=== PATIENT | female | born 1985 | race Caucasian/White ===

== ENCOUNTER 2017-04-10 09:18 | Emergency (ER) | payer SELFPAY ==
[~2017-04-10] VITALS: Ht 167.6 cm; Wt 126.8 kg
[~2017-04-10 09:18] MED LIST: CEPH500C2 PO; PRVHFAIN INH
[2017-04-10 09:25] VITALS: Ht 167.6 cm; Wt 126.8 kg
[2017-04-10 10:12] LABS: URINE APPEARANCE CLEAR (CLEAR); URINE BILIRUBIN NEG (NEG); URINE COLOR YELLOW; URINE EPITHELIAL CELL AUTO 20-30 /lpf (0-5); URINE NITRITE NEG (NEG); URINE SPECIFIC GRAVITY 1.016 (1.000-1.030); UROBILINOGEN NEG (NEG); ZZUR CULT IF INDIC CLEAN CATCH NO
[2017-04-10 10:16] LABS: MANUAL MICROSCOPIC REQUIRED? NO; REVIEW REQ? YES
[2017-04-10 10:42] LABS: BASO % 0.4 %; BASO ABS # 0.03 K/uL (0-0.2); COMPLETE YES; EOS % 1.6 %; HEMATOCRIT 40.7 % (37-47); IG% 0.1 %; LYMPH % 29.4 %; LYMPH ABS # 2.05 K/uL (1.2-3.4); MEAN CELL VOLUME 82.9 fL (80-100); MEAN CORPUSCULAR HEMOGLOBIN 27.7 pg (25-34); MEAN CORPUSCULAR HGB CONC 33.4 g/dl (32-36); MEAN PLATELET VOLUME 10.2 fL (7.4-10.4); MONO % 9.5 %; PLATELET COUNT 217 K/uL (130-400); RED BLOOD COUNT 4.91 M/uL (4.2-5.4); WHITE BLOOD COUNT 6.97 K/uL (4.8-10.8)
--- NOTE | 2017-04-10 10:42 | DIAGNOSTIC IMAGING REPORT ---
CHEST ONE VIEW PORTABLE HISTORY: ED eval cough COMPARISON: Chest 04/29/2016. FINDINGS: A few small linear densities within the left lung base. This may represent atelectasis or scarring. No new focal lung consolidations to suggest pneumonia. No evidence for pulmonary edema. There are low lung volumes. Cardiac silhouette is top normal in size. IMPRESSION: A few small linear densities at the left lung base which favor atelectasis or scarring. A pneumonia could also have a similar appearance but is considered less likely. Electronically signed by: Britton Mackey M.D. 04/10/2017 10:41 AM Dictated Date/Time: 04/10/2017 10:40 AM
[2017-04-10] MEDS ORDERED: ACETAMINOPHEN 500 MG TAB PO STA (10:46)
[2017-04-10] MEDS ORDERED: TRAMADOL HCL 50 MG TAB PO STA (10:46)
[2017-04-10] MEDS ORDERED: SODIUM CHLORIDE 0.9% 1000ML 1,000 ML IV STA (10:46)
[2017-04-10] MEDS ORDERED: COUGH DROP (SUGAR FREE) LOZ 24 LOZ/1 BOX PO STA (10:46)
[2017-04-10 11:01] LABS: BUN/CREATININE RATIO 14.9 (10-20); CALCIUM 8.8 mg/dl (8.5-10.1); CREATININE 0.69 mg/dl (0.60-1.20); POTASSIUM 3.9 mmol/L (3.5-5.1)
[2017-04-10 11:03] LABS: ALB/GLOB RATIO 0.9 (0.9-2)
[2017-04-10] MEDS ORDERED: AZITHROMYCIN 250 MG TAB PO ONE (11:15)
--- NOTE | 2017-04-10 11:48 | EMERGENCY ROOM VISIT NOTE ---
History Report prepared by Nathen: Kizzy Helms Under the Supervision of: Dr. Aubrey Leblanc M.D. First contact with patient: 10:15 Chief Complaint: ILLNESS Stated Complaint: SORETHROAT, CHEST PAIN WHEN COUGHING History of Present Illness The patient is a 31 year old white female with a past medical history of tonsillectomy who presents to the ED with a cc of persistent flu symptoms beginning 2 days ago. Positive cough productive of yellow/clear sputum, chest pain with coughing, congestion, clear/slightly yellow rhinorrhea, nausea. Negative leg pain/swelling, vomiting, ear pain, urinary symptoms. She denies any recent travel or history of blood clots. She does smoke. 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 She denies any sick contacts at home. Source of History: patient Onset: 2 days ago Position: other (global) Quality: other (flu symptoms) Timing: other (persistent) Associated Symptoms: + cough, + chest pain, + nausea, No vomiting, No urinary symptoms Note: Pt reports rhinorrhea, congestion. Pt denies ear pain. Review of Systems See HPI for pertinent positives and negatives. A total of ten systems were reviewed and were otherwise negative. 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 (23) Right calf pain (24) Right knee injury (25) Right lower quadrant abdominal abscess (26) Vertigo (27) Work related injury Surgical Problems: (1) History of - tubal ligation (2) Tonsillectomy Family History Cancer Diabetes mellitus Hypertension Social History Smoking Status: Current Every Day Smoker Alcohol Use: none Drug Use: none Marital Status: Housing Status: lives with family Occupation Status: employed Current/Historical Medications Scheduled Azithromycin (Zithromax), 250 MG PO DAILY Allergies Coded Allergies: Metaproterenol (Verified Allergy, Mild, UNKNOWN, 05/21/16) Ibuprofen (Verified Adverse Reaction, Intermediate, STOMACH ULCERS, ) Physical Exam Vital Signs Date Time Temp Pulse Resp B/P (MAP) Pulse Ox O2 Delivery O2 Flow Rate FiO2 04/10/17 12:59 69 18 127/88 100 04/10/17 11:59 36.6 65 18 125/71 98 Room Air 04/10/17 09:25 37.5 127 20 153/71 99 Room Air Physical Exam GENERAL: Awake, alert, well-appearing, NAD HENT: Normocephalic, atraumatic. Mild drainage to right naris. Posterior pharynx clear, no swelling or exudate. EYES: Normal conjunctiva. Sclera non-icteric. NECK: Supple. No nuchal rigidity. FROM. RESPIRATORY: CTAB, no rhonchi, wheezing, crackles CARDIAC: RRR, no MRG ABDOMEN: Soft, NTND, BS+ MSK: No chest wall TTP, no LE edema NEURO: GCS 15, CN 2-12 intact, moves all 4s on command SKIN: No rash or jaundice noted. Medical Decision & Procedures ER Provider Diagnostic Interpretation: Radiology results as stated below per my review and radiologist interpretation: CHEST ONE VIEW PORTABLE HISTORY: ED eval cough COMPARISON: Chest 04/29/2016. FINDINGS: A few small linear densities within the left lung base. This may represent atelectasis or scarring. No new focal lung consolidations to suggest pneumonia. No evidence for pulmonary edema. There are low lung volumes. Cardiac silhouette is top normal in size. IMPRESSION: A few small linear densities at the left lung base which favor atelectasis or scarring. A pneumonia could also have a similar appearance but is considered less likely. Electronically signed by: Britton Mackey M.D. 04/10/2017 10:41 AM Dictated Date/Time: 04/10/2017 10:40 AM Laboratory Results 04/10/17 10:26 Red Blood Count 4.91, Mean Corpuscular Volume 82.9, Mean Corpuscular Hemoglobin 27.7, Mean Corpuscular Hemoglobin Concent 33.4, Mean Platelet Volume 10.2, Neutrophils (%) (Auto) 59.0, Lymphocytes (%) (Auto) 29.4, Monocytes (%) (Auto) 9.5, Eosinophils (%) (Auto) 1.6, Basophils (%) (Auto) 0.4, Neutrophils # (Auto) 4.11, Lymphocytes # (Auto) 2.05, Monocytes # (Auto) 0.66, Eosinophils # (Auto) 0.11, Basophils # (Auto) 0.03 04/10/17 10:26 Test 04/10/17 09:45 04/10/17 10:02 04/10/17 10:26 Urine Color YELLOW Urine Appearance CLEAR (CLEAR) Urine pH 6.0 (4.5-7.5) Urine Specific [place] 1.016 (1.000-1.030) Urine Protein NEG (NEG) Urine Glucose (UA) NEG (NEG) Urine Ketones NEG (NEG) Urine Occult Blood NEG (NEG) Urine Nitrite NEG (NEG) Urine Bilirubin NEG (NEG) Urine Urobilinogen NEG (NEG) Urine Leukocyte Esterase NEG (NEG) Urine WBC (Auto) 1-5 /hpf (0-5) Urine RBC (Auto) 0-4 /hpf (0-4) Urine Hyaline Casts (Auto) 1-5 /lpf (0-5) Urine Epithelial Cells (Auto) 20-30 /lpf (0-5) Urine Bacteria (Auto) NEG (NEG) Urine Test NEG (NEG) Influenza Type A Antigen Neg for Influ A (NEG) Influenza Type B Antigen Neg for Influ B (NEG) White Blood Count 6.97 K/uL (4.8-10.8) Red Blood Count 4.91 M/uL (4.2-5.4) Hemoglobin 13.6 g/dL (12.0-16.0) Hematocrit 40.7 % (37-47) Mean Corpuscular Volume 82.9 fL (80-100) Mean Corpuscular Hemoglobin 27.7 pg (25-34) Mean Corpuscular Hemoglobin Concent 33.4 g/dl (32-36) Platelet Count 217 K/uL (130-400) Mean Platelet Volume 10.2 fL (7.4-10.4) Neutrophils (%) (Auto) 59.0 % Lymphocytes (%) (Auto) 29.4 % Monocytes (%) (Auto) 9.5 % Eosinophils (%) (Auto) 1.6 % Basophils (%) (Auto) 0.4 % Neutrophils # (Auto) 4.11 K/uL (1.4-6.5) Lymphocytes # (Auto) 2.05 K/uL (1.2-3.4) Monocytes # (Auto) 0.66 K/uL (0.11-0.59) Eosinophils # (Auto) 0.11 K/uL (0-0.5) Basophils # (Auto) 0.03 K/uL (0-0.2) RDW Standard Deviation 46.1 fL (36.4-46.3) RDW Coefficient of Variation 15.2 % (11.5-14.5) Immature Granulocyte % (Auto) 0.1 % Immature Granulocyte # (Auto) 0.01 K/uL (0.00-0.02) Anion Gap 4.0 mmol/L (3-11) Est Creatinine Clear Calc Drug Dose 159.4 ml/min Estimated GFR () 133.5 Estimated GFR (Non- 115.2 BUN/Creatinine Ratio 14.9 (10-20) Calcium Level 8.8 mg/dl (8.5-10.1) Total Bilirubin 0.4 mg/dl (0.2-1) Aspartate Amino Transf (AST/SGOT) 9 U/L (15-37) Alanine Aminotransferase (ALT/SGPT) 19 U/L (12-78) Alkaline Phosphatase 64 U/L (45-117) Total Protein 7.2 gm/dl (6.4-8.2) Albumin 3.4 gm/dl (3.4-5.0) Globulin 3.8 gm/dl (2.5-4.0) Albumin/Globulin Ratio 0.9 (0.9-2) Laboratory results reviewed by me Medications Administered Medications (Trade) Dose Ordered Sig/Naomi Route Start Time Stop Time Status Last Admin Dose Admin Acetaminophen (Tylenol Tab) 1,000 mg NOW STAT PO 04/10/17 10:46 04/10/17 10:51 DC 04/10/17 11:01 1,000 MG Tramadol HCl (Ultram Tab) 50 mg NOW STAT PO 04/10/17 10:46 04/10/17 10:51 DC 04/10/17 11:01 50 MG Menthol (Nice Dang) 1 dang NOW STAT PO 04/10/17 10:46 04/10/17 10:51 DC 04/10/17 11:01 1 DANG Sodium Chloride 1,000 ml @ 999 mls/hr Q1H1M STAT IV 04/10/17 10:46 04/10/17 11:46 DC 04/10/17 11:00 999 MLS/HR Azithromycin (Zithromax Tab) 500 mg NOW ONCE PO 04/10/17 11:15 04/10/17 11:16 DC 04/10/17 11:57 500 MG ECG Indication: chest pain Rate (beats per minute): 72 Rhythm: normal sinus Findings: T-wave inversion (lead 3 and aVF, early repolarization lead 1 and aVL , no other STS changes or TWI), left axis deviation, other (normal intervals) Comparison ECG Date: no prior available ED Course 1040: The patient was evaluated in room B11B. A complete history and physical exam was performed. 1205: I reevaluated the patient. I discussed results and discharge instructions : She verbalized understanding and agreement. The patient is ready for discharge. Medical Decision Differential diagnosis: Etiologies such as cardiac ischemia, aortic dissection, pulmonary embolism, pneumonia, pneumothorax, musculoskeletal, infections, pericarditis, myocarditis , esophageal rupture, gastrointestinal, URI, sinusitis, rhinitis as well as others were entertained. The patient is a 31 year old white female with a past medical history of tonsillectomy who presents to the ED with a cc of persistent flu symptoms beginning 2 days ago. Patient was seen and evaluated at the bedside. Patient initial vital signs patient with tachycardia. Patient's story not consistent with ACS and does not have any other risk factors other than obesity and smoking. Patient's EKG was not normal and was told to follow-up with her PCP. Patient does not PE RC out however patient wells negative once tachycardia resolved and given likely infectious related symptoms. Less likely PE. Patient's tachycardia and pain discomfort resolved supportive care. Patient did have a chest x-ray that showed possible atelectasis versus early infection. Given patient's productive sputum and smoking history decision was made to treat. Patient's labwork fairly unremarkable. Patient will blood cell count of 7. Patient's BMP and LFTs within normal limits. Patient's UA and UPT negative. Patient also had flu negative. Patient was given smoking cessation counseling. Patient agreed with plan of care patient was safely discharged home. Medication Reconcilliation Current Medication List: was personally reviewed by me Blood Pressure Screening Patient's blood pressure: Normal blood pressure Blood pressure disposition: Did not require urgent referral Impression Primary Impression: Encounter for smoking cessation counseling Additional Impressions: Dehydration Viral illness PNA (pneumonia) Scribe Attestation The scribe's documentation has been prepared under my direction and personally reviewed by me in its entirety. I confirm that the note above accurately reflects all work, treatment, procedures, and medical decision making performed by me. Departure Information Dispostion Home / Self-Care Prescriptions Azithromycin (Zithromax) 250 Mg Tab 250 MG PO DAILY, #4 TAB Prov: Aubrey Leblanc M.D. 04/10/17 Referrals [facility] (PCP) Patient Instructions ED Pneumonia Adult, ED Smoking Cessation, How Do You Quit Smoking Without Getting Fat - [facility], [facility] Additional Instructions Please return to the emergency department if you have worsening or recurrent symptoms not amenable to at-home treatment. Please call for a follow-up appointment with her primary care physician. Please take your medications as prescribed. If you have other concerns and/or complaints please feel free to also call your primary care physician's office or return the ED for further evaluation, management, and treatment. You received narcotic or benzodiazepene medication while in the emergency room today. This is an addictive medication that may cause drowziness as well as constipation. Do not drive, operate heavy machinery, or drink alcohol under the influence of this medication. You may take 600 mg Ibuprofen every 6 hours as needed for pain with food for no more than 2 consecutive days. You may take tylenol 1000mg every 6 hours as needed for pain. You may take motrin and tylenol separately or at the same time. Take antibiotics as prescibed. Please consider smoking cessation. You may take probiotic and or yogurt with antibiotic to help replace good gut bacteria. You have been examined and treated today on an emergency basis only. This is not a substitute for, or an effort to provide, complete comprehensive medical care. It is impossible to recognize and treat all injuries or illnesses in a single emergency department visit. It is therefore important that you follow up closely with [facility]. Call as soon as possible for an appointment. Thank you for your time and consideration. I look forward to speaking with you again soon. Please don't hesitate to call us if you have any questions. Work Instructions Return To Work: 1 day Specific Date: 04/11/17 Problem Qualifiers Additional Impressions: PNA (pneumonia) Pneumonia type: due to unspecified organism Laterality: left Lung location : unspecified part of lung Qualified Codes: J18.9 - Pneumonia, unspecified organism
[2017-04-10 11:59] VITALS: TEMP 36.6
[2017-04-10] MEDS ORDERED: AZIT250T PO (12:23)
[2017-04-10 12:59] VITALS: BP 127/88; PULSE 69; O2SAT 100
== END 2017-04-10 13:00 | disposition home or self-care (01) ==
LOC: C.EDB 09:22
DX: J18.9 Pneumonia, unspecified organism (principal); E86.0 Dehydration; B34.9 Viral infection, unspecified; Z71.6 Tobacco abuse counseling; F17.210 Nicotine dependence, cigarettes, uncomplicated; H81.10 Benign paroxysmal vertigo, unspecified ear; K21.9 Gastro-esophageal reflux disease without esophagitis; E66.9 Obesity, unspecified; Z68.42 Body mass index [BMI] 45.0-49.9, adult; Z98.51 Tubal ligation status; Z80.9 Family history of malignant neoplasm, unspecified; Z83.3 Family history of diabetes mellitus; Z82.49 Family history of ischemic heart disease and other diseases of the circulatory system

== ENCOUNTER 2017-05-21 18:54 | Emergency (ER) | payer SELFPAY ==
[~2017-05-21] VITALS: Ht 167.6 cm; Wt 127.0 kg
[~2017-05-21 18:54] MED LIST changes: +AZIT250T PO; -CEPH500C2 PO; -PRVHFAIN INH
[2017-05-21 19:01] VITALS: Ht 167.6 cm; Wt 127.0 kg
--- NOTE | 2017-05-21 19:52 | DIAGNOSTIC IMAGING REPORT ---
RIGHT SHOULDER 3 VIEWS HISTORY: right shoulder pain COMPARISON: None. FINDINGS: There is no fracture or dislocation. Soft tissues are unremarkable. The right clavicle is intact. Mild AC joint arthrosis. Punctate calcified granuloma within the right upper lobe. IMPRESSION: No fracture or dislocation within the right shoulder Electronically signed by: Britton Mackey M.D. 05/21/2017 7:51 PM Dictated Date/Time: 05/21/2017 7:49 PM
--- NOTE | 2017-05-21 20:24 | EMERGENCY ROOM VISIT NOTE ---
History First contact with patient: 19:26 Chief Complaint: SHOULDER PAIN Stated Complaint: RT SHOULDER PAIN History of Present Illness The patient is a 31 year old female who presents to the Emergency Room with complaints of right shoulder pain. The patient reports that she reached up to put a pizza into the oven earlier in the day and developed pain in the right shoulder afterward. She states the pain was initially sharp, but has now become a dull, achy pain which she rates an 8/10. She does report some tingling in the right upper arm, but denies numbness or weakness. She denies any issues with the shoulder previously. She denies any chest pain or shortness of breath. She states her pain is worsened with movement of the shoulder or when trying to lift things. Review of Systems A complete 10 point review of systems was reviewed with the patient with pertinent positives and negatives as per history of present illness. All else were negative. 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 (23) Right calf pain (24) Right knee injury (25) Right lower quadrant abdominal abscess (26) Vertigo (27) Work related injury Surgical Problems: (1) History of - tubal ligation (2) Tonsillectomy Family History Cancer Diabetes mellitus Hypertension Social History Smoking Status: Current Every Day Smoker Alcohol Use: none Drug Use: none Marital Status: Housing Status: lives with family Occupation Status: employed Current/Historical Medications Scheduled Azithromycin (Zithromax), 250 MG PO DAILY Allergies Coded Allergies: Metaproterenol (Verified Allergy, Mild, UNKNOWN, 05/21/16) Ibuprofen (Verified Adverse Reaction, Intermediate, STOMACH ULCERS, ) Physical Exam Vital Signs Date Time Temp Pulse Resp B/P (MAP) Pulse Ox O2 Delivery O2 Flow Rate FiO2 05/21/17 20:38 36.7 70 18 119/76 96 05/21/17 20:29 70 18 119/76 96 Room Air 05/21/17 19:01 36.7 76 20 137/86 99 Room Air Physical Exam VITALS: Vitals are noted on the nurse's note and reviewed by myself. Vital signs stable. GENERAL: This is a 31-year-old female, in no acute distress, nondiaphoretic, well-developed well-nourished. SKIN: Capillary reflex less than 2 seconds. HEART: Regular rate and rhythm without murmurs gallops or rubs. LUNGS: Clear to auscultation bilaterally without wheezes, rales or rhonchi. MUSCULOSKELETAL: There is diffuse, mild tenderness to palpation of the right shoulder. Full range of motion. Patient does report subjective pain with range of motion. NEURO: Patient was alert and oriented to person place and time. Normal sensation to light and sharp touch. Medical Decision & Procedures ER Provider Diagnostic Interpretation: RIGHT SHOULDER 3 VIEWS HISTORY: right shoulder pain COMPARISON: None. FINDINGS: There is no fracture or dislocation. Soft tissues are unremarkable. The right clavicle is intact. Mild AC joint arthrosis. Punctate calcified granuloma within the right upper lobe. IMPRESSION: No fracture or dislocation within the right shoulder Medical Decision Differential diagnosis includes fracture, dislocation, sprain, rotator cuff injury, cervical radiculopathy, among others. The patient was evaluated as above. She presents with pain in the right shoulder after reaching overhead. An x-ray was obtained and reviewed by myself and radiology with no acute findings. Patient likely has a muscular strain and was advised to take anti-inflammatories at home. She was offered a sling but declined. She will follow-up with orthopedics as needed for persistent pain or difficulty moving the arm. She verbalized understanding of my assessment and treatment plan and was discharged home in good condition. Medication reconciliation: I attest that I have personally reviewed the patient 's current medication list. Blood pressure screening: Patient was found to have normal blood pressure on screening and does not require follow-up. Impression Primary Impression: Right shoulder pain Departure Information Dispostion Home / Self-Care Condition GOOD Referrals [facility] (PCP) Torsten Mac M.D. Patient Instructions My [facility] Additional Instructions You have been treated in the Emergency Department for Shoulder Pain. For pain control, you can use the following [id number]-[id number] medicines (if >12 yo): - Regular strength (325mg/tab) Tylenol (acetaminophen) 2 tabs every 4-6 hours as needed. Do not exceed 12 tablets in a 24 hour period. Avoid taking more than 4 grams (4000 mg) of Tylenol per day. This includes any other sources of acetaminophen you may take on a regular basis. - Regular strength (200 mg/tab) Advil (ibuprofen) 1-2 tabs every 4-6 hours as needed. Do not exceed a dose of 3200 mg per day. If this is a recent injury (<24 hrs), ice can be applied to the area of pain for the first 3 days to help decrease pain and inflammation. You have been provided the number for an Orthopaedic Surgeon. You should call this number as soon as possible to establish a follow-up visit from today's Emergency Department visit. Return to the Emergency Department if your current symptoms worsen despite treatment course outlined above, or if you develop any of the following symptoms : intractable pain despite aforementioned treatment course or new onset of numbness or tingling of the arm. Problem Qualifiers Primary Impression: Right shoulder pain Chronicity: acute Qualified Codes: M25.511 - Pain in right shoulder
[2017-05-21 20:38] VITALS: BP 119/76; PULSE 70; TEMP 36.7; O2SAT 96
== END 2017-05-21 20:39 | disposition home or self-care (01) ==
LOC: C.EDB 18:55 → C.EDD 20:39
DX: M25.512 Pain in left shoulder (principal); F17.210 Nicotine dependence, cigarettes, uncomplicated

== ENCOUNTER 2017-08-21 09:52 | Emergency (ER) | payer SELFPAY ==
[~2017-08-21] VITALS: Ht 170.2 cm; Wt 125.4 kg
[~2017-08-21 09:52] MED LIST changes: -AZIT250T PO; +IBUP-1105 PO; +VNTHFA/IN INH
[2017-08-21 10:03] VITALS: Ht 170.2 cm; Wt 125.4 kg
[2017-08-21] MEDS ORDERED: OSELTAMIVIR PHOSPHATE 75 MG CAP PO STA (10:56)
[2017-08-21] MEDS ORDERED: ALBUT/IPRATROP 3MG/0.5MG NEB 3 ML VIAL INH STA (10:56)
[2017-08-21] MEDS ORDERED: AZITHROMYCIN 250 MG TAB PO ONE (11:00)
[2017-08-21] MEDS ORDERED: SODIUM CHLORIDE 0.65% NA SOLN 45 ML (OCEAN) ONE (11:00)
--- NOTE | 2017-08-21 11:01 | EMERGENCY ROOM VISIT NOTE ---
History Report prepared by Nathen: Ranulfo Thorne Under the Supervision of: Dr. Mal Kaur M.D. First contact with patient: 10:42 Chief Complaint: FLU LIKE SX Stated Complaint: EAR CLOGGED, COUGH ,LOW GRADE FEVER History of Present Illness The patient is a 31 year old female who presents to the Emergency Room with complaints of persistent flu like symptoms for the past two weeks. She states that she has had some ear clogging and then draining, pink eye, head congestion , cough, and a low grade fever. The patient states that her last fever was 99.3 this morning, and she has not taken any Tylenol. She states that she has been using a nasal spray, though no other antihistamines. She denies any burning with urination, nausea, vomiting, and diarrhea. The patients last normal menstrual period was 2.5 weeks ago, and she states that it was only 2 days compared to her usual 5. She notes that she did not get a flu shot this year, and she states that her daughter is positive for flu. She states that she is a smoker, and she has not been using an inhaler. She notes that she has this inhaler for pneumonia a month ago, and she states that her cough came back a couple of days ago. Source of History: patient Onset: two weeks ago Position: other (global) Quality: other (flu like symptoms) Timing: other (persistent) Associated Symptoms: + fevers, + cough Note: Associated symptoms: Ear clogging and then draining, pink eye Review of Systems See HPI for pertinent positives and negatives. A total of ten systems were reviewed and were otherwise negative. 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 (23) Right calf pain (24) Right knee injury (25) Right lower quadrant abdominal abscess (26) Vertigo (27) Work related injury Surgical Problems: (1) History of - tubal ligation (2) Tonsillectomy Family History Cancer Diabetes mellitus Hypertension Social History Smoking Status: Current Every Day Smoker Alcohol Use: none Drug Use: none Marital Status: Housing Status: lives with family Occupation Status: employed Current/Historical Medications Scheduled Albuterol (Ventolin Hfa), 2 PUFFS INH QID Azithromycin (Zithromax), 250 MG PO DAILY Oseltamivir Phosphate (Tamiflu), 75 MG PO BID Scheduled PRN Ibuprofen Tab (Motrin), 800 MG PO Q8H PRN for Pain Allergies Coded Allergies: Metaproterenol (Verified Allergy, Mild, UNKNOWN, 08/21/17) Ibuprofen (Verified Adverse Reaction, Intermediate, STOMACH ULCERS, ) Physical Exam Vital Signs Date Time Temp Pulse Resp B/P (MAP) Pulse Ox O2 Delivery O2 Flow Rate FiO2 08/21/17 12:55 37.3 101 18 110/89 96 Room Air 08/21/17 11:54 37.4 104 16 121/70 97 Room Air 08/21/17 10:03 37.1 107 18 104/76 96 Room Air Physical Exam GENERAL: Awake, alert, fatigued-appearing, in no distress HENT: Normocephalic, atraumatic. Dry mucous membranes. Boggy nasal turbinates. Mild tenderness to the maxillary an frontal sinuses. TM with scant injection bilaterally. Mildly injected posterior oropharynx. No edema or exudate. EYES: Normal conjunctiva. Sclera non-icteric. NECK: Supple. No nuchal rigidity. FROM. No JVD. RESPIRATORY: Clear to auscultation. CARDIAC: Regular rate, normal rhythm. Extremities warm and well perfused. Pulses equal. ABDOMEN: Soft, non-distended. No tenderness to palpation. No rebound or guarding. No masses. RECTAL: Deferred. MUSCULOSKELETAL: Chest examination reveals no tenderness. The back is symmetrical on inspection without obvious abnormality. There is no CVA tenderness to palpation. No joint edema. LOWER EXTREMITIES: Calves are equal size bilaterally and non-tender. No edema. No discoloration. NEURO: Normal sensorium. No sensory or motor deficits noted. SKIN: No rash or jaundice noted. Medical Decision & Procedures ER Provider Diagnostic Interpretation: Radiology results as stated below per my review and radiologist interpretation: CHEST ONE VIEW PORTABLE CLINICAL HISTORY: cough dyspnea COMPARISON STUDY: 06/02/2017 FINDINGS: The bones soft tissues and hemidiaphragms are normal. The cardiomediastinal silhouette is normal. The lungs are clear. The pulmonary vasculature is normal. IMPRESSION: Negative chest. The above report was generated using voice recognition software. It may contain grammatical, syntax or spelling errors. Electronically signed by: Coleman Justin M.D. 08/21/2017 11:22 AM Dictated Date/Time: 08/21/2017 11:21 AM Laboratory Results Test 08/21/17 11:40 Urine Test NEG (NEG) Laboratory results reviewed by me Medications Administered Medications (Trade) Dose Ordered Sig/Naomi Route Start Time Stop Time Status Last Admin Dose Admin Oseltamivir Phosphate (Tamiflu Cap) 75 mg NOW STAT PO 08/21/17 10:56 08/21/17 11:00 DC 08/21/17 11:23 75 MG Albuterol/ Ipratropium (Duoneb) 3 ml NOW STAT INH 08/21/17 10:56 08/21/17 11:00 DC 08/21/17 11:23 3 ML Azithromycin (Zithromax Tab) 500 mg NOW ONCE PO 08/21/17 11:00 08/21/17 11:01 DC 08/21/17 11:23 500 MG Sodium Chloride (Mcpherson Nasal Anthony) 2 sprays NOW ONCE NA 08/21/17 11:00 08/21/17 11:01 DC 08/21/17 11:22 2 SPRAYS ED Course 1042: The patient was evaluated in room C2. A complete history and physical exam was performed. 1320: I reevaluated the patient. Discussed results and discharge instructions: she verbalized understanding and agreement. The patient is ready for discharge. Medical Decision I reviewed the patient's past medical history, medications, and the nursing notes as described above. The patient's presentation and history were concerning for viral syndrome, influenza, otitis media, bronchitis, and pharyngitis. The patient is 31 y/o woman, active smoker who presents to the emergency department with cough, congestion, ear fullness and body aches over the past several days in the setting of body aches over the past couple of weeks, in the setting of being treated for PNA 1 month ago per HPI. Of note, patient arrives to ED with her 6 y/o son who has similar sx in the setting of having another child at home who was recently diagnosed and treated for Flu. On arrival the patient is in NAD, AFVSS. Patient has clear URI sx with boggy nasal turbinates, mild maxillary and frontal sinus ttp, TMs with mild injection. Scant wheeze in the setting of the patient's chronic smoking. CXR negative. Given the patient's smoking history it is reasonable to treat for bronchitis with azithromycin as well as treat empirically for Flu with Tamiflu. Patient given neb with improvement in her symptoms. Plan for pcp f/u. Findings and plan for follow-up reviewed with patient. Patient agreeable and d/c'd per discharge instructions. Medication Reconcilliation Current Medication List: was personally reviewed by me Blood Pressure Screening Patient's blood pressure: Normal blood pressure Impression Primary Impression: Bronchitis Scribe Attestation The scribe's documentation has been prepared under my direction and personally reviewed by me in its entirety. I confirm that the note above accurately reflects all work, treatment, procedures, and medical decision making performed by me. Departure Information Dispostion Home / Self-Care Prescriptions Albuterol (Ventolin Hfa) 60 Puffs/5400 Mcg Aers 2 PUFFS INH QID for 5 Days, #1 INHALER Prov: Mal Kaur M.D. 08/21/17 Azithromycin (Zithromax) 250 Mg Tab 250 MG PO DAILY, #4 TAB Prov: Mal Kaur M.D. 08/21/17 Oseltamivir Phosphate (Tamiflu) 75 Mg Cap 75 MG PO BID, #10 CAP Prov: Mal Kaur M.D. 08/21/17 Ibuprofen Tab (MOTRIN) 800 Mg Tab 800 MG PO Q8H Y for Pain, #20 TAB Prov: Mal Kaur M.D. 08/21/17 Referrals [facility] (PCP) Forms HOME CARE DOCUMENTATION FORM, IMPORTANT VISIT INFORMATION Patient Instructions ED Bronchitis Asthmatic, ED Viral Syndrome, My [facility] Additional Instructions Please follow up with your primary care physician in the next 1-3 days for re- evaluation. You likely have a bronchitis that may have been exacerbated by a viral syndrome and possibly flu. Otherwise, your exam and chest xray did not show signs of an emergent condition at this time. Azithromycin and Tamiflu as directed. Use your albuterol inhaler 2 puffs every 4 hours for the next 48 hours and then as needed thereafter. Ensure hydration. Acetaminophen and Ibuprofen for pain and fevers as needed. Return to the emergency department for worsening symptoms as described in the accompanying instructions.
--- NOTE | 2017-08-21 11:24 | DIAGNOSTIC IMAGING REPORT ---
CHEST ONE VIEW PORTABLE CLINICAL HISTORY: cough dyspnea COMPARISON STUDY: 06/02/2017 FINDINGS: The bones soft tissues and hemidiaphragms are normal. The cardiomediastinal silhouette is normal. The lungs are clear. The pulmonary vasculature is normal. IMPRESSION: Negative chest. The above report was generated using voice recognition software. It may contain grammatical, syntax or spelling errors. Electronically signed by: Coleman Justin M.D. 08/21/2017 11:22 AM Dictated Date/Time: 08/21/2017 11:21 AM
[2017-08-21 12:55] VITALS: BP 110/89; PULSE 101; TEMP 37.3; O2SAT 96
[2017-08-21] MEDS ORDERED: IBUP-1451 PO ×2 (13:14→13:19)
[2017-08-21] MEDS ORDERED: OSEL75CA23 PO ×2 (13:14→13:19)
[2017-08-21] MEDS ORDERED: PRVHFAIN INH ×2 (13:15→13:19)
[2017-08-21] MEDS ORDERED: AZIT250T PO ×2 (13:15→13:19)
== END 2017-08-21 13:47 | disposition home or self-care (01) ==
LOC: C.EDB 09:53 → C.EDC 13:47
DX: J40 Bronchitis, not specified as acute or chronic (principal); F17.200 Nicotine dependence, unspecified, uncomplicated; Z83.3 Family history of diabetes mellitus; Z82.49 Family history of ischemic heart disease and other diseases of the circulatory system

== ENCOUNTER 2017-09-08 10:31 | Emergency (ER) | payer SELFPAY ==
[~2017-09-08] VITALS: Ht 167.6 cm; Wt 122.0 kg
[~2017-09-08 10:31] MED LIST changes: +AZIT250T PO; -IBUP-1105 PO; +IBUP-1451 PO; +OSEL75CA23 PO; +PRVHFAIN INH; -VNTHFA/IN INH
[2017-09-08 10:40] VITALS: BP 139/77; TEMP 36.7; Ht 167.6 cm; Wt 122.0 kg
[2017-09-08] MEDS ORDERED: VNTHFA/IN INH (10:51)
[2017-09-08] MEDS ORDERED: CEPH500C2 PO (11:41)
--- NOTE | 2017-09-08 11:42 | EMERGENCY ROOM VISIT NOTE ---
ED Visit Note First contact with patient: 10:58 CHIEF COMPLAINT: Right great toe infection 2 days HISTORY OF PRESENT ILLNESS: Patient is a 31-year-old white female who presents emergency department for evaluation of right great toe pain, redness and swelling. She began to note some soreness in the lateral nailfold a couple of days ago. It has progressively worsened. Last night, after taking a hot bath, and walking around her home, she got some pus like drainage from the nail fold. She did have some of her pain medication, which she took. She did soak the area in warm soapy water today. She denies any further drainage. She rates her discomfort a 7/10. She states that she trimmed her nails a couple of weeks ago, and was using a cuticle luciana to clean around the nail. She does have a history of subcutaneous abscesses, including in her axilla and in her groin. She denies a history of MRSA. REVIEW OF SYSTEMS: Review of systems as per HPI. All other systems reviewed were negative. At least 6 systems reviewed. PMH: Electronic medical records are reviewed and summarized as above/below. See Problem List. Her tetanus is up-to-date. SOCIAL HISTORY: Patient lives at home with her family. PHYSICAL EXAM: Vital Signs: Reviewed Nurse's notes. INTEGUMENTARY: Examination of the right great toe show some soft tissue swelling and erythema of the lateral nailfold. There is some granulation tissue noted at the corner of the nail. The area is moderately tender to palpation, range of motion full. There is no pus or effusion under the nailbed. No drainable paronychia. EMERGENCY DEPARTMENT COURSE: The patient is seen and evaluated as above. She presents with some pus like drainage from the lateral nail fold of her right great toe after trimming her nails several weeks ago. She appears to have had a perineal Which has drained spontaneously on its own. She does have some surrounding erythema, but no further drainable fluid collection at this time. Treatment options were discussed with the patient including performing a digital block, and exploring the area, versus a trial of local wound care measures and antibiotics. She prefers the latter. She was encouraged to continue warm soapy water soaks, and will be placed on Keflex. Her wound was cleansed here and she was placed in a postoperative shoe for support. Differential diagnoses included paronychia, felon, osteomyelitis, infectious tenosynovitis, among others. Problem List Medical Problems: (1) Abdominal pain Status: Resolved (2) Abscess Status: Resolved (3) Abscess packing removal Status: Resolved (4) Benign positional vertigo Status: Resolved (5) Calf pain Status: Resolved (6) Cellulitis Status: Resolved (7) Chest pain Status: Resolved (8) Chest pain Status: Resolved (9) Chest pain Status: Resolved (10) Cigarette smoker Status: Resolved (11) Esophagitis Status: Resolved (12) Fall Status: Resolved (13) Fall from slipping on slippery surface Status: Resolved (14) GERD (gastroesophageal reflux disease) Status: Chronic (15) Headache Status: Resolved (16) Knee pain Status: Resolved (17) Left leg cellulitis Status: Resolved (18) Lower abdominal pain Status: Resolved (19) Lumbar strain Status: Resolved (20) Normal Status: Resolved (21) Obesity Status: Chronic (22) Ovarian cyst Status: Resolved (23) Pelvic contusion Status: Resolved (24) Pneumonia Status: Resolved (25) Premature Rupture of Membranes Status: Resolved (26) Right calf pain Status: Resolved (27) Right knee injury Status: Resolved (28) Right lower quadrant abdominal abscess Status: Resolved (29) Right shoulder pain Status: Resolved (30) Vertigo Status: Resolved (31) Work related injury Status: Resolved Surgical Problems: (1) History of - tubal ligation Status: Resolved (2) Tonsillectomy Status: Resolved Current/Historical Medications Scheduled Cephalexin Monohydrate (Keflex), 500 MG PO QID Scheduled PRN Albuterol Hfa (Ventolin Hfa), 2 PUFFS INH QID PRN for SOB/Wheezing Ibuprofen Tab (Motrin), 800 MG PO Q8H PRN for Pain Allergies Coded Allergies: Metaproterenol (Verified Allergy, Mild, UNKNOWN, 09/08/17) Ibuprofen (Verified Adverse Reaction, Intermediate, STOMACH ULCERS, ) Vital Signs Date Time Temp Pulse Resp B/P (MAP) Pulse Ox O2 Delivery O2 Flow Rate FiO2 09/08/17 11:52 70 16 97 09/08/17 10:40 36.7 89 20 139/77 100 Medications Administered Medications (Trade) Dose Ordered Sig/Naomi Route Start Time Stop Time Status Last Admin Dose Admin Cephalexin Monohydrate (Keflex Cap) 500 mg NOW ONCE PO 09/08/17 11:45 09/08/17 11:46 DC 09/08/17 11:49 500 MG Acetaminophen/ Hydrocodone Bitart ([place] 5/325mg Home Pack) 1 homepack UD ONCE PO 09/08/17 11:45 09/08/17 11:46 DC 09/08/17 11:50 1 HOMEPACK Departure Information Impression Primary Impression: Ingrown toenail of right foot with infection Prescriptions Cephalexin Monohydrate (KEFLEX) 500 Mg Cap 500 MG PO QID for 7 Days, #28 CAP Prov: Barbara Cui PA 09/08/17 Referrals [facility] (PCP) Patient Instructions My [facility] Additional Instructions Cephalexin(Keflex) 500mg: Take one pill four times daily for 7 days for your skin infection. All antibiotics can cause diarrhea. If this occurs and you feel worse or it does not resolve in 1-2 days follow up with your doctor or return to the Emergency Department as this could be signs of serious underlying problems. Any medication can cause an allergic reaction, stop the pills immediately and return to the ER for rash, hives, breathing difficulties, or swelling. Ibuprofen(Motrin, Advil) may be used for fever or pain. Use 600mg every six hours as needed. Take with food. Avoid using more than 2400mg in a 24 hour period. Do not use 2400mg per day for more than three consecutive days without physician direction. Prolonged inappropriate use can lead to stomach upset or ulcers. (AND/OR) Acetaminophen(Tylenol) may be used for fever or pain. Use 1000mg every six hours as needed. Avoid using more than 3000mg in a 24 hour period. Warm soapy water soaks to the affected area 4 times daily for 15-20 minutes. Clean with hydrogen peroxide for 2-3 days, then may discontinue. Her with antibiotic ointment and a bandage until healed. Wear the postoperative shoe until you can wear a regular shoe comfortably. Rest and drink plenty of fluids. Continue current medications. Return to the ER for severe pain, persistent fevers, spreading redness, or any worsening of your condition. Follow up with your primary physician within 2-3 days for a recheck of the current condition.
[2017-09-08] MEDS ORDERED: CEPHALEXIN MONOHYDRATE 250 MG CAP PO ONE (11:45)
[2017-09-08] MEDS ORDERED: NORCO 5/325MG HOME PACK PO ONE (11:45)
[2017-09-08 11:52] VITALS: PULSE 70; O2SAT 97
== END 2017-09-08 11:53 | disposition home or self-care (01) ==
LOC: C.EDB 10:33 → C.EDC 11:53
DX: L60.0 Ingrowing nail (principal); Z87.891 Personal history of nicotine dependence; Z88.8 Allergy status to other drugs, medicaments and biological substances; Z88.6 Allergy status to analgesic agent

== ENCOUNTER 2017-11-07 19:30 | Emergency (ER) | payer OTHER ==
[~2017-11-07] VITALS: Ht 170.2 cm; Wt 125.0 kg
[~2017-11-07 19:30] MED LIST changes: -AZIT250T PO; -OSEL75CA23 PO; -PRVHFAIN INH; +VNTHFA/IN INH
[2017-11-07 19:34] VITALS: TEMP 36.7; Ht 170.2 cm; Wt 125.0 kg
--- NOTE | 2017-11-07 19:48 | EMERGENCY ROOM VISIT NOTE ---
History Report prepared by Nathen: Maria C White Under the Supervision of: Dr. Glenn Domingo M.D. First contact with patient: 19:39 Chief Complaint: KNEEPAIN Stated Complaint: RT KNEE PAIN-WC History of Present Illness The patient is a 31 year old female who presents to the Emergency Room with complaints of persistent right knee pain that started 7 hours ago. The patient rates her pain a 8/10 in severity. The patient states she was at work when she was carrying a plastic tub of water and slipped on the wet floor. She notes she landed directly on her right knee. She reports she did not hit her head. The patient states she had surgery on her right knee from a previous fall where she tore her meniscus. She notes she has back and abdominal pain. The patient denies chest pain or shortness of breath. Source of History: patient Onset: 7 hours ago Position: knee (right) Symptom Intensity: 8/10 Timing: other (persistent) Associated Symptoms: + abdominal pain, + back pain, No chest pain, No SOB Review of Systems See HPI for pertinent positives & negatives. A total of 10 systems reviewed and were otherwise negative. Past Medical & Surgical Medical Problems: (1) Abdominal pain (2) Abscess (3) Abscess packing removal (4) Benign positional vertigo (5) Calf pain (6) Cellulitis (7) Chest pain (8) Chest pain (9) Chest pain (10) Cigarette smoker (11) Esophagitis (12) Fall (13) Fall from slipping on slippery surface (14) GERD (gastroesophageal reflux disease) (15) Headache (16) Knee pain (17) Left leg cellulitis (18) Lower abdominal pain (19) Lumbar strain (20) Normal (21) Obesity (22) Ovarian cyst (23) Pelvic contusion (24) Pneumonia (25) Premature Rupture of Membranes (26) Right calf pain (27) Right knee injury (28) Right lower quadrant abdominal abscess (29) Right shoulder pain (30) Vertigo (31) Work related injury Surgical Problems: (1) History of - tubal ligation (2) Tonsillectomy Old medical records were reviewed. Nurse's notes were reviewed and I agree with. Family History Cancer Diabetes mellitus Hypertension Social History Smoking Status: Current Every Day Smoker Alcohol Use: none Drug Use: none Marital Status: Housing Status: lives with family Occupation Status: employed Current/Historical Medications Scheduled PRN Albuterol Hfa (Ventolin Hfa), 2 PUFFS INH QID PRN for SOB/Wheezing Ibuprofen Tab (Motrin), 800 MG PO Q8H PRN for Pain Allergies Coded Allergies: Metaproterenol (Verified Allergy, Mild, UNKNOWN, 09/08/17) Ibuprofen (Verified Adverse Reaction, Intermediate, STOMACH ULCERS, ) Physical Exam Vital Signs Date Time Temp Pulse Resp B/P (MAP) Pulse Ox O2 Delivery O2 Flow Rate FiO2 11/07/17 21:19 82 20 169/81 97 Room Air 11/07/17 19:34 36.7 93 18 121/72 98 Room Air Physical Exam General: Non-ill appearing young female in no acute distress. HEENT: Normal cephalic atraumatic. Pupils are equal round and reactive to light. Extraocular movements are intact. Oropharynx is pink with moist mucous membranes. No swelling of the mouth lips or tongue. Neck: Supple with a midline trachea. No meningeal signs or stiffness, no JVD or bruits. No Stridor. Chest: Clear to auscultation bilaterally. No wheezes or rhonchi. No increased work of breathing. Heart: regular rate and rhythm. Abdomen: Soft nontender, nondistended without rebound guarding or rigidity. Extremities: Right knee mildly tender but no swollen. Normal motor and sensation. Normal pulses. Spine/Back. Non tender to palpation. No CVA tenderness Skin: Good turgor without rashes. Neurologic exam: Cranial nerves two through 12 are intact. Motor and sensation are intact and symmetrical throughout. Medical Decision & Procedures ER Provider Diagnostic Interpretation: Radiology results as stated below per my review and radiologist interpretation: RIGHT KNEE 3 VIEWS HISTORY: Right knee pain. Fall. EVAL FOR PATELLA FX AND KNEE INJURY COMPARISON: None. FINDINGS: There is no fracture or dislocation. Mild tricompartmental osteoarthritis. No significant knee effusion. No radiopaque foreign bodies. IMPRESSION: No fractures. Electronically signed by: Britton Mackey M.D. 11/07/2017 8:35 PM Dictated Date/Time: 11/07/2017 8:34 PM Medications Administered Medications (Trade) Dose Ordered Sig/Naomi Route Start Time Stop Time Status Last Admin Dose Admin Acetaminophen (Tylenol Tab) 650 mg NOW STAT PO 11/07/17 20:25 11/07/17 20:26 DC 11/07/17 20:30 650 MG ED Course 1939: Past medical records reviewed. The patient was evaluated in room D3B, and a complete history and physical examination were performed. 2024: Tylenol Tab 650 mg PO. 2044: Upon reevaluation, the patient is resting comfortably. I discussed the results and treatment plan with her. She verbalized agreement of the treatment plan. The patient is ready for discharge. Medical Decision Differentials include, but are not limited to; contusion, ligamentous injury, fracture. This patient comes in as described above. She fell at work and injured her knee. She has full range of motion and no ligamentous instability. X-rays were obtained and show no fracture or dislocation. She was given Tylenol for pain. She has no other complaints. Shee will use an Monty wrap and ice and elevate and use Tylenol/acetaminophen for pain. She has a history of stomach ulcers so I told her to try to avoid NSAIDs. Do not take more than the over-the -counter recommended dosage of Tylenol and do not take with any other medications that contain Tylenol/acetaminophen. I recommend she follow-up with Dr. Mac her orthopedics either tomorrow or Saturday. She is getting be given a day off tomorrow from work. She was happy the plan and discharged to home. Medication Reconcilliation Current Medication List: was personally reviewed by me Impression Primary Impression: Knee contusion Scribe Attestation The scribe's documentation has been prepared under my direction and personally reviewed by me in its entirety. I confirm that the note above accurately reflects all work, treatment, procedures, and medical decision making performed by me. Departure Information Dispostion Home / Self-Care Referrals [facility] (PCP) Patient Instructions My [facility] Additional Instructions Rest. Ice Elevate Use Tylenol/acetaminophen a maximum of 650 mg every 6 hours. Do not take with any other medications that contain Tylenol/Acetaminophen Use Monty wrap Return if: Increasing pain, numbness weakness, worsening symptoms, any new problems or concerns. Follow-up with Dr. Mac's office tomorrow for recheck
[2017-11-07] MEDS ORDERED: ACETAMINOPHEN 325 MG TAB PO STA (20:25)
--- NOTE | 2017-11-07 20:37 | DIAGNOSTIC IMAGING REPORT ---
RIGHT KNEE 3 VIEWS HISTORY: Right knee pain. Fall. EVAL FOR PATELLA FX AND KNEE INJURY COMPARISON: None. FINDINGS: There is no fracture or dislocation. Mild tricompartmental osteoarthritis. No significant knee effusion. No radiopaque foreign bodies. IMPRESSION: No fractures. Electronically signed by: Britton Mackey M.D. 11/07/2017 8:35 PM Dictated Date/Time: 11/07/2017 8:34 PM
[2017-11-07 21:19] VITALS: BP 169/81; PULSE 82; O2SAT 97
== END 2017-11-07 21:20 | disposition home or self-care (01) ==
LOC: C.EDB 19:32 → C.EDD 21:20
DX: S80.01XA Contusion of right knee, initial encounter (principal); W01.198A Fall on same level from slipping, tripping and stumbling with subsequent striking against other object, initial encounter; Y99.0 Civilian activity done for income or pay; M54.9 Dorsalgia, unspecified; R10.9 Unspecified abdominal pain; F17.200 Nicotine dependence, unspecified, uncomplicated; Z98.890 Other specified postprocedural states; Z88.8 Allergy status to other drugs, medicaments and biological substances; Z88.6 Allergy status to analgesic agent; Z83.3 Family history of diabetes mellitus; Z82.49 Family history of ischemic heart disease and other diseases of the circulatory system

== ENCOUNTER 2020-05-24 06:43 | Observation (INO) ==
[2020-05-24] MEDS ORDERED: SULFAMETHOXAZOLE/TRIMETHOPRIM DS 800/160MG TAB PO ONE (07:15)
[2020-05-24] MEDS ORDERED: MoRPHine SULFATE 4 MG/ML 1 ML CARP\\VIAL IV STA (07:15)
[2020-05-24] MEDS ORDERED: KETOROLAC 30 MG/ML VIAL IV ONE (07:15)
[2020-05-24] MEDS ORDERED: ONDANSETRON INJ 2 MG/ML 2 ML VIAL IV STA (07:15)
[2020-05-24] MEDS ORDERED: cefTRIAXone SODIUM 2,000 MG/70 ML BAG IV STA (07:15)
--- NOTE | 2020-05-24 07:25 | Emergency Department Note ---
History of Present Illness General Chief complaint: Breast Pain/Problems Stated complaint: RIGHT BREAST HOT,HURTS Time Seen by Provider: 05/24/20 07:01 History of Present Illness Maximum Pain Intensity: 8 34-year-old female who presents to the emergency department with concern for a right breast abscess. The patient reports prior history of breast abscesses. She last required an I&D approximately 1.[address] Travis. The patient reports that Dr. Travis refused to perform any further procedures until she stopped smoking. The patient reports that she did stop smoking late last year, and continues to get infections. The patient reports that she has been tested negative in the past for MRSA. The patient started to notice some redness yesterday morning after showering. The pain was much worse last night and was unable to sleep because of the pain. She does report some mild drainage from the lateral aspect of the breast. She denies any nipple discharge. The patient denies any recent injury to the breast, and rates her discomfort an 8 out of 10. Home Medications Home Medications Medication Instructions Recorded Confirmed Type albuterol sulfate 2 puff INHALATION QID PRN 07/14/18 05/24/20 History metformin 500 mg PO HS 12/23/18 05/24/20 History sertraline 100 mg PO HS 12/23/18 05/24/20 History spironolactone 50 mg PO HS 12/23/18 05/24/20 History buspirone 0 mg PO BID 08/18/19 05/24/20 History Allergies Allergy/AdvReac Type Severity Reaction Status Date / Time metaproterenol Allergy Mild UNKNOWN Verified 05/24/20 07:46 ibuprofen AdvReac Intermediate STOMACH Verified 05/24/20 07:46 ULCERS Past Med/Surg History Medical History Benign positional vertigo GERD (gastroesophageal reflux disease) Ovarian cyst PNA (pneumonia) Surgical History History of knee surgery Tubal ligation status Social History Smoking Status: Former smoker Tobacco Type: Cigarettes Cigarettes Per Day: 20; Second Hand Exposure: No; Do You Dip or Chew Tobacco: No; Tobacco Cessation Education Requested by Patient: No Hx Alcohol Use: No Hx Substance Use: No Preferred Language: Citizen Of [place] Communication Ability: Effective Foster Care Case Manager Required: No Beliefs That Will Affect Care: None marital status: Current Living Situation: Spouse current occupational status: employed Other Information That Helps Us Care for You: No Feels Safe at Home: Yes Safety Concerns: Feels Safe At This Time Assistive Devices: Glasses Review of Systems 10 system review was performed and was negative except for pertinent positives and negatives as indicated in history of present illness Physical Exam Vital Signs Vital Signs - 24 hr 05/24/20 06:47 05/24/20 08:23 05/24/20 10:00 Temperature 36.9 C Temperature Source Oral Pulse Rate 85 Pulse Rate [Apical] Pulse Rate [Right Finger] 74 80 Pulse Rhythm [Apical] Pulse Rhythm [Right Finger] Regular Pulse Strength [Apical] Pulse Strength [Right Finger] Normal Respiratory Rate 20 20 18 Respiratory Effort / Characteristics Non-Labored Non-Labored Spontaneous Respiratory Depth Normal Normal Respiratory Pattern Regular Blood Pressure 130/78 Blood Pressure [Right Arm] 149/79 H 139/78 Blood Pressure Mean 95 Blood Pressure Mean [Right Arm] 102 98 Blood Pressure Position Sitting Blood Pressure Position [Right Arm] Lying Pulse Oximetry 98 94 97 Oxygen Delivery Method Room Air Room Air Room Air Oxygen Flow Rate Sepsis Recent Fever Within 48 Hours No Sepsis New/Unexplained Change in Mental Status N/A Sepsis Action Taken by Nursing No Action Required 05/24/20 12:00 05/24/20 14:05 05/24/20 14:53 Temperature 36.6 C 36.2 C L Temperature Source Oral Temporal Artery Scan Pulse Rate Pulse Rate [Apical] 77 Pulse Rate [Right Finger] 87 78 Pulse Rhythm [Apical] Regular Pulse Rhythm [Right Finger] Regular Pulse Strength [Apical] Normal Pulse Strength [Right Finger] Normal Respiratory Rate 18 18 18 Respiratory Effort / Characteristics Non-Labored Spontaneous Non-Labored Spontaneous Respiratory Depth Normal Normal Respiratory Pattern Regular Regular Blood Pressure Blood Pressure [Right Arm] 123/74 127/66 104/71 Blood Pressure Mean Blood Pressure Mean [Right Arm] 90 86 82 Blood Pressure Position Blood Pressure Position [Right Arm] Sitting Semi-fowlers Pulse Oximetry 97 98 96 Oxygen Delivery Method Room Air Room Air Oxymask Oxygen Flow Rate 2 Sepsis Recent Fever Within 48 Hours Sepsis New/Unexplained Change in Mental Status Sepsis Action Taken by Nursing 05/24/20 15:00 05/24/20 15:10 05/24/20 15:20 Temperature Temperature Source Pulse Rate Pulse Rate [Apical] 81 80 79 Pulse Rate [Right Finger] Pulse Rhythm [Apical] Regular Regular Regular Pulse Rhythm [Right Finger] Pulse Strength [Apical] Normal Normal Normal Pulse Strength [Right Finger] Respiratory Rate 15 15 18 Respiratory Effort / Characteristics Non-Labored Spontaneous Non-Labored Spontaneous Non-Labored Spontaneous Respiratory Depth Normal Normal Normal Respiratory Pattern Regular Regular Regular Blood Pressure Blood Pressure [Right Arm] 115/67 102/79 109/71 Blood Pressure Mean Blood Pressure Mean [Right Arm] 83 86 83 Blood Pressure Position Blood Pressure Position [Right Arm] Semi-fowlers Semi-fowlers Semi-fowlers Pulse Oximetry 94 94 92 Oxygen Delivery Method Oxymask Oxymask Room Air Oxygen Flow Rate 2 2 Sepsis Recent Fever Within 48 Hours Sepsis New/Unexplained Change in Mental Status Sepsis Action Taken by Nursing 05/24/20 15:30 05/24/20 15:40 Temperature Temperature Source Pulse Rate Pulse Rate [Apical] 78 77 Pulse Rate [Right Finger] Pulse Rhythm [Apical] Regular Regular Pulse Rhythm [Right Finger] Pulse Strength [Apical] Normal Normal Pulse Strength [Right Finger] Respiratory Rate 18 18 Respiratory Effort / Characteristics Non-Labored Spontaneous Non-Labored Spontaneous Respiratory Depth Normal Normal Respiratory Pattern Regular Regular Blood Pressure Blood Pressure [Right Arm] 115/73 103/69 Blood Pressure Mean Blood Pressure Mean [Right Arm] 87 80 Blood Pressure Position Blood Pressure Position [Right Arm] Semi-fowlers Semi-fowlers Pulse Oximetry 93 93 Oxygen Delivery Method Room Air Room Air Oxygen Flow Rate Sepsis Recent Fever Within 48 Hours Sepsis New/Unexplained Change in Mental Status Sepsis Action Taken by Nursing CONSTITUTIONAL: Healthy and well nourished. Patient appears in mild discomfort. HEENT: Normocephalic, atraumatic. No scleral icterus or conjunctival inject ion/pallor. NECK: Full active range of motion without discomfort. LYMPHATICS: No right axillary adenopathy appreciated. RESPIRATORY: Clear to auscultation bilaterally with no wheezing, crackles, r honchi or stridor. CARDIOVASCULAR: Regular rate and rhythm with no murmurs, rubs or gallops. MUSCULOSKELETAL: Full range of motion of the right shoulder without discomfort. INTEGUMENTARY/BREAST: With a female nurse supervisor boiler repair present, breast exam was performed. Patient has notable erythema over the anterior portion of the breast. It is notably tender to palpation with mild induration, mostly focused over the region medial to the areola. No nipple discharge or bleeding noted. No other rash or other significant dermatologic conditions noted of the exposed chest region. HEMATOLOGIC: No ecchymosis or petechiae. PSYCHIATRIC: Positive affect. NEUROLOGIC: No focal neurologic deficits noted. Course Course Patient history and physical exam were performed. Nurses notes were reviewed. Vital signs were reviewed and were normal. IV access was established, and labs were drawn. The patient was administered IV morphine, Toradol and Zofran for pain. She was also administered IV Rocephin and oral Bactrim DS. Review of labs shows a mild leukocytosis with left shift and no bandemia. CMP was otherwise unremarkable. Urinalysis was ordered, however the patient was unable to provide a urine sample. Ultrasound of the right breast does show evidence of a complex abscess at 8-9 o'clock. Given ultrasound findings, mild leukocytosis and notable erythema of the breast, I did recommend contacting general surgery for consultation. Patient was in agreement. The case was also discussed with Dr. Domingo, ED attending physician, who was in agreement. The case was further discussed with Dr. Valdes, general surgeon, who came to the emergency department, evaluated the patient and is recommending I&D procedure, and admission for IV antibiotics. Prior to the patient going to the OR, I did order additional IV Tylenol for the pain. The patient refused any stronger analgesics. Administered Medications Discontinued Medications Acetaminophen (Acetaminophen 1000 Mg/100 Ml Iv) 1,000 mg IV ONE ONE Stop: 05/24/20 12:14 Last Admin: 05/24/20 12:27 Dose: 1,000 mg Documented by: [id number] Bacitracin (Bacitracin Oint 15 Gm Tube) Confirm Administered Dose 45 appln .ROUTE .STK-MED ONE Stop: 05/24/20 14:17 Last Admin: 05/24/20 14:54 Dose: 45 appln Documented by: [id number] Bupivacaine HCl (Bupivacaine 0.5 % 5 Mg/1 Ml Mpf 30ml Vial) Confirm Administered Dose 30 ml .ROUTE .STK-MED ONE Stop: 05/24/20 14:17 Last Admin: 05/24/20 14:54 Dose: 1 ml Documented by: [id number] Ceftriaxone Sodium (Rocephin) 2,000 mg in 70 mls @ 140 mls/hr IV NOW STA Stop: 05/24/20 07:44 Last Infusion: 05/24/20 08:28 Dose: 0 mls/hr Documented by: [id number] Admin: 05/24/20 07:49 Dose: 140 mls/hr Documented by: [id number] Ketorolac Tromethamine (Ketorolac 30 Mg/Ml Vial) 30 mg IV NOW ONE Stop: 05/24/20 07:16 Last Admin: 05/24/20 07:25 Dose: 30 mg Documented by: [id number] Lidocaine HCl (Lidocaine Hcl 1% 20 Ml Vial) Confirm Administered Dose 20 ml .ROUTE .STK-MED ONE Stop: 05/24/20 14:17 Last Admin: 05/24/20 14:54 Dose: 1 ml Documented by: [id number] Morphine Sulfate (Morphine Sulfate 4 Mg/Ml 1 Ml Carp\Vial) 4 mg IV NOW STA Stop: 05/24/20 07:16 Last Admin: 05/24/20 07:25 Dose: 4 mg Documented by: [id number] Ondansetron HCl (Ondansetron Inj 2 Mg/Ml 2 Ml Vial) 4 mg IV NOW STA Stop: 05/24/20 07:16 Last Admin: 05/24/20 07:25 Dose: 4 mg Documented by: [id number] Trimethoprim/Sulfamethoxazole (Sulfamethoxazole/Trimethoprim Ds 800/160mg Tab) 1 tab PO NOW ONE Stop: 05/24/20 07:16 Last Admin: 05/24/20 07:24 Dose: 1 tab Documented by: [id number] Medical Decision Making Medical Records Attestation: I reviewed the patient's medical records. Home Medications Current Medication List: was personally reviewed by me Laboratory Data Attestation: I reviewed the patient's lab results. Result diagrams: 05/24/20 07:20 05/24/20 07:20 Lab Results 05/24/20 05/24/20 05/24/20 Range/Units 07:20 07:20 10:25 WBC 11.99 H (4.8-10.8) K/uL RBC 4.75 (4.2-5.4) M/uL Hgb 12.7 (12.0-16.0) g/dL Hct 39.3 (37-47) % MCV 82.7 (80-100) fL MCH 26.7 (25-34) pg MCHC 32.3 (32-36) g/dL RDW Std Deviation 45.4 (36.4-46.3) fL RDW Coeff of Juan Alberto 14.9 H (11.5-14.5) % Plt Count 241 (130-400) K/uL MPV 9.6 (7.4-10.4) fL Immature Gran % (Auto) 0.2 % Neut % (Auto) 70.9 % Lymph % (Auto) 19.0 % [place] % (Auto) 8.4 % Eos % (Auto) 1.3 % Baso % (Auto) 0.2 % Neut # (Auto) 8.51 H (1.4-6.5) K/uL Lymph # (Auto) 2.28 (1.2-3.4) K/uL [place] # (Auto) 1.01 H (0.11-0.59) K/uL Eos # (Auto) 0.15 (0-0.5) K/uL Baso # (Auto) 0.02 (0-0.2) K/uL Immature Gran # (Auto) 0.02 (0.00-0.02) K/uL Sodium 138 (136-145) mmol/L Potassium 4.1 (3.5-5.1) mmol/L Chloride 106 (98-107) mmol/L Carbon Dioxide 27 (21-32) mmol/L Anion Gap 5.0 (3-11) BUN 15 (7-18) mg/dl Creatinine 0.72 (0.6-1.2) mg/dl Est Cr Clr Drug Dosing 157.5 ml/min Est GFR ( Amer) 125.8 Est GFR (Non-Af Amer) 108.5 BUN/Creatinine Ratio 20.4 H (10-20) Glucose 113 H (70-99) mg/dl Calcium 8.8 (8.5-10.1) mg/dl Total Bilirubin 0.4 (0.2-1) mg/dl AST 10 L (15-37) U/L ALT 26 (12-78) U/L Alkaline Phosphatase 57 (45-117) U/L Total Protein 7.8 (6.4-8.2) gm/dl Albumin 3.3 L (3.4-5.0) gm/dl Globulin 4.5 H (2.5-4.0) gm/dl Albumin/Globulin Ratio 0.7 L (0.9-2) COVID-19 Eval [facility] SARS-CoV-2, RNA, NAAT (NEGATIVE) 05/24/20 Range/Units 10:25 WBC (4.8-10.8) K/uL RBC (4.2-5.4) M/uL Hgb (12.0-16.0) g/dL Hct (37-47) % MCV (80-100) fL MCH (25-34) pg MCHC (32-36) g/dL RDW Std Deviation (36.4-46.3) fL RDW Coeff of Juan Alberto (11.5-14.5) % Plt Count (130-400) K/uL MPV (7.4-10.4) fL Immature Gran % (Auto) % Neut % (Auto) % Lymph % (Auto) % [place] % (Auto) % Eos % (Auto) % Baso % (Auto) % Neut # (Auto) (1.4-6.5) K/uL Lymph # (Auto) (1.2-3.4) K/uL [place] # (Auto) (0.11-0.59) K/uL Eos # (Auto) (0-0.5) K/uL Baso # (Auto) (0-0.2) K/uL Immature Gran # (Auto) (0.00-0.02) K/uL Sodium (136-145) mmol/L Potassium (3.5-5.1) mmol/L Chloride (98-107) mmol/L Carbon Dioxide (21-32) mmol/L Anion Gap (3-11) BUN (7-18) mg/dl Creatinine (0.6-1.2) mg/dl Est Cr Clr Drug Dosing ml/min Est GFR ( Amer) Est GFR (Non-Af Amer) BUN/Creatinine Ratio (10-20) Glucose (70-99) mg/dl Calcium (8.5-10.1) mg/dl Total Bilirubin (0.2-1) mg/dl AST (15-37) U/L ALT (12-78) U/L Alkaline Phosphatase (45-117) U/L Total Protein (6.4-8.2) gm/dl Albumin (3.4-5.0) gm/dl Globulin (2.5-4.0) gm/dl Albumin/Globulin Ratio (0.9-2) COVID-19 Eval Order SARS-CoV-2, RNA, NAAT NEGATIVE (NEGATIVE) Imaging Data Attestation: I personally reviewed and interpreted this imaging study as follo ws: My Impression: Breast ultrasound shows a 15 x 4 x 25 mm complex dermal collection at the 8 to 9 o'clock position. Radiologist report was reviewed. Radiologist's Impression: US breast RT limited CLINICAL HISTORY: Eval abscess vs cellulitis COMPARISON STUDY: 01/15/2018 FINDINGS: There is diffuse right breast edema. There is skin thickening. In the area of clinical concern, at the 8-9 o'clock position, there is a 15 x 4 x 25 mm complex dermal collection. This likely represents a small abscess/phlegmon. IMPRESSION: 1. 15 x 4 x 25 mm complex dermal collection at the 8 to 9:00 position, likely representing a small abscess/phlegmon. Blood Pressure Blood Pressure Findings: Elevated blood pressure MDM Narrative Patient presents to the emergency department with complaint of an infection of the right breast. The patient has had multiple breast abscesses in the past. Ultrasound does show presence for an abscess, as well as physical exam findings concerning for advanced cellulitis. General surgery will be performing an I&D procedure, and will also admit the patient for IV antibiotics. Impression & Plan Abscess of right breast Discharge Plan Visit Data Chief Complaint: Breast Pain/Problems Stated Complaint: RIGHT BREAST HOT,HURTS ED Provider: Glenn Domingo ED Midlevel Provider: Guille Rodgers Discharge Problem: Abscess of right breast Discharge Instructions Interventions: ED Discharge Assessment Last Done: 05/24/20 14:01
[2020-05-24 07:30] LABS: Basophils # (auto) 0.02 K/uL (0-0.2); Basophils % (auto) 0.2 %; Eosinophils # (auto) 0.15 K/uL (0-0.5); Eosinophils % (auto) 1.3 %; Hematocrit (blood only) 39.3 % (37-47); Hemoglobin 12.7 g/dL (12.0-16.0); Immature Granulocytes # (auto) 0.02 K/uL (0.00-0.02); Immature Granulocytes % (auto) 0.2 %; Lymphocytes # (auto) 2.28 K/uL (1.2-3.4); Mean Corpuscular Hemoglobin 26.7 pg (25-34); Mean Corpuscular Hgb Conc 32.3 g/dL (32-36); Mean Corpuscular Volume 82.7 fL (80-100); Mean Platelet Volume 9.6 fL (7.4-10.4); Monocytes # (auto) 1.01 K/uL (0.11-0.59); Monocytes % (auto) 8.4 %; Neutrophils # (auto) 8.51 K/uL (1.4-6.5); Neutrophils % (auto) 70.9 %; Platelet Count 241 K/uL (130-400); RDW Coefficient of Variation 14.9 % (11.5-14.5); RDW Standard Deviation 45.4 fL (36.4-46.3); Red Blood Count 4.75 M/uL (4.2-5.4); White Blood Count 11.99 K/uL (4.8-10.8)
[2020-05-24 07:49] LABS: Albumin Level 3.3 gm/dl (3.4-5.0); BUN Creatinine Ratio 20.4 (10-20); Calcium 8.8 mg/dl (8.5-10.1); Creatinine Clr Calc Pharmacy 157.5 ml/min; Est GFR (African American) 125.8; Est GFR (Non-African American) 108.5; Potassium 4.1 mmol/L (3.5-5.1)
[2020-05-24 07:51] LABS: Albumin Globulin Ratio 0.7 (0.9-2); Bilirubin,Total 0.4 mg/dl (0.2-1); Globulin 4.5 gm/dl (2.5-4.0); Total Protein 7.8 gm/dl (6.4-8.2)
--- NOTE | 2020-05-24 08:32 | Ultrasound Report ---
US breast RT limited CLINICAL HISTORY: Eval abscess vs cellulitis COMPARISON STUDY: 01/15/2018 FINDINGS: There is diffuse right breast edema. There is skin thickening. In the area of clinical conc juan, at the 8-9 o'clock position, there is a 15 x 4 x 25 mm complex dermal collection. This likely re presents a small abscess/phlegmon. IMPRESSION: 1. 15 x 4 x 25 mm complex dermal collection at the 8 to 9:00 position, likely representing a small ab scess/phlegmon. ACT 112: Negative or not required by law. Electronically signed by: Ernie Raymond M.D. 05/24/2020 8:31 AM
--- NOTE | 2020-05-24 10:28 | Surgery Consultation ---
Date of Consultation May 24, 2020 Assessment & Plan (1) Abscess of right breast: pt is a 34 years old female who presents to Er with one day history right breast pain, some drainage from right breast, pt hda I//D right breast abscess about 2 years ago, IMP: right breast abscess Plan, I recommend to do I/D right breast abscess under sedation + local . D/W benefits, risk and alternatives of the surgery, the risks - infection, bleeding, recurrence, scar, pt understood, she agrees with the surgery, I answered all questions, pre-op iv antibiotic, pt agrees with admit to hospital after surgery, Present on Admission?: Yes History of Present Illness History of Present Illness History of Present Illness General Chief complaint: Breast Pain/Problems Stated complaint: RIGHT BREAST HOT,HURTS Time Seen by Provider: 05/24/20 07:01 History of Present Illness Maximum Pain Intensity: 8 34-year-old female who presents to the emergency department with concern for a right breast abscess. The patient reports prior history of breast abscesses. She last required an I&D approximately 1.[address] Travis. The patient reports that Dr. Travis refused to perform any further procedures until she stopped smoking. The patient reports that she did stop smoking late last year, and continues to get infections. The patient reports that she has been tested negative in the past for MRSA. The patient started to notice some redness yesterday morning after showering. The pain was much worse last night and was unable to sleep because of the pain. She does report some mild drainage from the lateral aspect of the breast. She denies any nipple discharge. The patient denies any recent injury to the breast, and rates her discomfort an 8 out of 10. I ( Karon Valdes MD ) got a call for consult right breast abscess, I reviewed pt's H/P, labs, U/S study with pt, pt is still have right breast pain, Home Medications Home Medications Medication Instructions Recorded Confirmed Type albuterol sulfate 2 puff INHALATION QID PRN 07/14/18 05/24/20 History metformin 500 mg PO HS 12/23/18 05/24/20 History sertraline 100 mg PO HS 12/23/18 05/24/20 History spironolactone 50 mg PO HS 12/23/18 05/24/20 History buspirone 0 mg PO BID 08/18/19 05/24/20 History Allergies Allergy/AdvReac Type Severity Reaction Status Date / Time metaproterenol Allergy Mild UNKNOWN Verified 05/24/20 07:46 ibuprofen AdvReac Intermediate STOMACH Verified 05/24/20 07:46 ULCERS Past Med/Surg History Medical History Benign positional vertigo GERD (gastroesophageal reflux disease) Ovarian cyst PNA (pneumonia) Surgical History History of knee surgery Social History Smoking Status: Former smoker Tobacco Type: Cigarettes Preferred Language: [place] marital status: Current Living Situation: Spouse current occupational status: employed Feels Safe at Home: Yes Review of Systems 10 system review was performed and was negative except for pertinent positives and negatives as indicated in history of present illness Physical Exam Vital Signs Vital Signs - 24 hr 05/24/20 06:47 05/24/20 08:23 Temperature 36.9 C Temperature Source Oral Pulse Rate 85 Pulse Rate [Right Finger] 74 Pulse Rhythm [Right Finger] Regular Pulse Strength [Right Finger] Normal Respiratory Rate 20 20 Respiratory Effort / Characteristics Non-Labored Non-Labored Spontaneous Respiratory Depth Normal Normal Respiratory Pattern Regular Blood Pressure 130/78 Blood Pressure [Right Arm] 149/79 H Blood Pressure Mean 95 Blood Pressure Mean [Right Arm] 102 Blood Pressure Position Sitting Blood Pressure Position [Right Arm] Lying Pulse Oximetry 98 94 Oxygen Delivery Method Room Air Room Air Sepsis Recent Fever Within 48 Hours No Sepsis New/Unexplained Change in Mental Status N/A Sepsis Action Taken by Nursing No Action Required Allergies Allergy/AdvReac Type Severity Reaction Status Date / Time metaproterenol Allergy Mild UNKNOWN Verified 05/24/20 07:46 ibuprofen AdvReac Intermediate STOMACH Verified 05/24/20 07:46 ULCERS Home Medications Home Medications Medication Instructions Recorded Confirmed Type albuterol sulfate 2 puff INHALATION QID PRN 07/14/18 05/24/20 History metformin 500 mg PO HS 12/23/18 05/24/20 History sertraline 100 mg PO HS 12/23/18 05/24/20 History spironolactone 50 mg PO HS 12/23/18 05/24/20 History buspirone 0 mg PO BID 08/18/19 05/24/20 History Patient History Medical History Benign positional vertigo GERD (gastroesophageal reflux disease) Ovarian cyst PNA (pneumonia) Surgical History History of knee surgery Social History Smoking Status: Former smoker Tobacco Type: Cigarettes Preferred Language: [place] marital status: Current Living Situation: Spouse current occupational status: employed Feels Safe at Home: Yes Review of Systems Review of Systems: All systems reviewed & are unremarkable except as noted in HPI & below Constitutional: as per Subjective / HPI Eyes: as per Subjective / HPI Ear, Nose, Mouth, Throat: as per Subjective / HPI Respiratory: as per Subjective / HPI Cardiovascular: as per Subjective / HPI Gastrointestinal: as per Subjective / HPI Genitourinary: as per Subjective / HPI Musculoskeletal: as per Subjective / HPI right breast abscess with I/D Integumentary: as per Subjective / HPI Neurologic: as per Subjective / HPI vertigo Psychiatric: as per Subjective / HPI Endocrine: as per Subjective / HPI Hematologic / Lymphatic: as per Subjective / HPI Physical Exam Constitutional: WD/WN, vitals as above well developed and well nourished Eyes: PERRL, conjunctivae normal, anicteric sclerae ENMT: external ear and nose normal, oropharynx normal Neck: trachea midline, no thyromegaly Respiratory: normal respiratory effort, lungs clear to auscultation Cardiovascular: RRR, no murmur, no edema Rate/Rhythm: regular rate and regular rhythm Heart Sounds: normal S1 and normal S2 Chest (Breasts): Additional Comments: redness and tenderness at right breast , at 8-9, and 3-4 O'Clock, Gastrointestinal (Abdomen): normal bowel sounds, soft, nontender, no hepa tosplenomegaly Musculoskeletal: no cyanosis or clubbing, extremities motor strength 5/5 Skin: no rashes, warm and dry Neurologic: patellar DTR's 2+ bilat, sensation intact Psychiatric: Orientation: alert and oriented x 3 Results & Data ([facility]) Vital Signs (Past 12 Hours) Vital Signs Temp Pulse Pulse Resp BP BP Pulse Ox 05/24/20 08:23 74 20 149/79 H 94 05/24/20 06:47 36.9 C 85 20 130/78 98 Laboratory Results Abnormal lab results 05/24/20 05/24/20 Range/Units 07:20 07:20 WBC 11.99 H (4.8-10.8) K/uL RDW Coeff of Juan Alberto 14.9 H (11.5-14.5) % Neut # (Auto) 8.51 H (1.4-6.5) K/uL [place] # (Auto) 1.01 H (0.11-0.59) K/uL BUN/Creatinine Ratio 20.4 H (10-20) Glucose 113 H (70-99) mg/dl AST 10 L (15-37) U/L Albumin 3.3 L (3.4-5.0) gm/dl Globulin 4.5 H (2.5-4.0) gm/dl Albumin/Globulin Ratio 0.7 L (0.9-2) Diagnostic Findings US breast RT limited CLINICAL HISTORY: Eval abscess vs cellulitis COMPARISON STUDY: 01/15/2018 FINDINGS: There is diffuse right breast edema. There is skin thickening. In the area of clinical concern, at the 8-9 o'clock position, there is a 15 x 4 x 25 mm complex dermal collection. This likely represents a small abscess/phlegmon. IMPRESSION: 1. 15 x 4 x 25 mm complex dermal collection at the 8 to 9:00 position, likely representing a small abscess/phlegmon.
[2020-05-24] MEDS ORDERED: ACETAMINOPHEN 1000 MG/100 ML IV IV ONE (12:13)
--- NOTE | 2020-05-24 14:13 | Anesthesiology Consultation ---
Date of Service May 24, 2020 Assessment & Plan Chart Review Chart Review: Acceptable Risk for Surgery and Patient NOT seen in Pre Admission Testing Consults Requested none ASA [id number] Proposed Anesthesia Anesthesia Type: MAC Risk / Benefits Reviewed With: PT / POA / Parent / Guardian, Accepts Plan and Informed Consent Obtained Additional Comments: covid test negative History Surgery Operation Date: 05/24/20 09:50 Proposed Procedures p Right Breast Abscess Incision and Drainage - Karon Valdes MD Height/Weight Height: 5 ft 6 in Weight: 139.8 kg Allergies Allergy/AdvReac Type Severity Reaction Status Date / Time metaproterenol Allergy Mild UNKNOWN Verified 05/24/20 07:46 ibuprofen AdvReac Intermediate STOMACH Verified 05/24/20 07:46 ULCERS Medications Home Medications Medication Instructions Recorded Confirmed Last Taken albuterol sulfate 2 puff INHALATION QID PRN 07/14/18 05/24/20 Unknown metformin 500 mg PO HS 12/23/18 05/24/20 05/23/20 sertraline 100 mg PO HS 12/23/18 05/24/20 05/23/20 spironolactone 50 mg PO HS 12/23/18 05/24/20 05/23/20 buspirone 0 mg PO BID 08/18/19 05/24/20 05/23/20 NPO Date Last Intake of Fluids: 05/23/20 Time Last Intake of Fluids: 21:00 Date Last Intake of Solids: 05/23/20 Time Last Intake of Solids: 21:00 Past Medical History Medical History Benign positional vertigo GERD (gastroesophageal reflux disease) Ovarian cyst PNA (pneumonia) Exercise / Class Metabolic Activity III < 4 Walking/Shop/Light housework Past Surgical History Surgical History History of knee surgery Past Anesthesia History No Hx of Anesthesia Complications and No Family Hx of Anesthesia Complications History of PONV No Hx of PONV and No Hx of Motion Sickness Social History Smoking Status: Former smoker tobacco type: cigarettes Smoking cigarettes per day: 20 Do You Dip or Chew Tobacco: No Hx Alcohol Use: No Hx Substance Use: No substance use type: does not use Physical Exam Vital Signs Last Vital Signs Temp 36.9 C 05/24/20 06:47 Pulse 87 10/27/20 12:00 Resp 18 05/24/20 12:00 BP 123/74 05/24/20 12:00 Pulse Ox 97 05/24/20 12:00 Constitutional + morbidly obese ENMT Mouth: + small oral opening; no dentition abnormality Thyromental Distance: < 3.5 Finger Breadths Mallampati Class: II Neck normal visual inspection, trachea midline, + short neck and + thick neck; neck extension not limited Respiratory normal respiratory effort Auscultation: lungs clear to auscultation bilaterally Cardiovascular Rate/Rhythm: regular rate and regular rhythm Heart Sounds: no murmur Vessels: no carotid bruit Musculoskeletal Spine: normal cervical ROM Extremities: extremities normal to inspection Neurologic moves all extremities Motor/Sensory: no sensory deficit Psychiatric Orientation: alert and oriented x 3 Testing Laboratory Results 05/24/20 07:20 05/24/20 07:20 Electrocardiogram Date: 08/29/18 Findings: + NSR @ (at 87) and + LVH ? poss. old anter. infarct
[2020-05-24] MEDS ORDERED: FLUMAZENIL 0.1 MG/1 ML 10 ML VIAL IV PRN (14:16)
[2020-05-24] MEDS ORDERED: LABETALOL HCL IV 5 MG/ML 20ML IV PRN (14:16)
[2020-05-24] MEDS ORDERED: PROMETHAZINE HCL 12.5 MG in SODIUM CHLORIDE 0.9% 50 ML IV PRN (14:16)
[2020-05-24] MEDS ORDERED: fentaNYL citrate 100 MCG/2 ML VIAL IV PRN (14:16)
[2020-05-24] MEDS ORDERED: ONDANSETRON INJ 2 MG/ML 2 ML VIAL IV PRN ×2 (14:16→15:00)
[2020-05-24] MEDS ORDERED: BUPIVACAINE 0.5 % 5 MG/1 ML MPF 30ML VIAL ONE (14:16)
[2020-05-24] MEDS ORDERED: LIDOCAINE HCL 1% 20 ML VIAL ONE (14:16)
[2020-05-24] MEDS ORDERED: BACITRACIN OINT 15 GM TUBE ONE (14:16)
[2020-05-24] MEDS ORDERED: ATROPINE SULFATE 0.1 MG/ML 10ML SYR IV PRN (14:16)
[2020-05-24] MEDS ORDERED: NALOXONE HCL 0.4 MG/1 ML VIAL/CARP IV PRN (14:16)
[2020-05-24] MEDS ORDERED: MIDAZOLAM HCL 1 MG/ML 2ML VIAL ONE (14:18)
[2020-05-24] MEDS ORDERED: fentaNYL citrate 100 MCG/2 ML VIAL ONE (14:18)
[2020-05-24] MEDS ORDERED: LIDOCAINE HCL 2% 2 ML VIAL/AMP(20MG/ML) INFIL ONE (14:19)
[2020-05-24] MEDS ORDERED: PROPOFOL IV EMULSION 10 MG/ML 20 ML VIAL IV ONE (14:19)
--- NOTE | 2020-05-24 14:27 | History & Physical Bridge Note ---
Date of Service May 24, 2020 History & Physical Bridge Note I have examined the patient, reviewed the History & Physical and in the interval since the performance of the History & Physical I have noted the following changes of clinical significance: no changes noted
[2020-05-24] MEDS ORDERED: ceFAZolin 2000MG 2,000 MG/15 ML SYR IV ONE (14:28)
[2020-05-24] MEDS ORDERED: LACTATED RINGER'S 1,000 ML IV SCH (14:30)
--- NOTE | 2020-05-24 14:46 | Post Operative Brief Note ---
Immediate Post Op Note v1 Date of Surgery May 24, 2020 Pre & Post Diagnosis Operation Date: 05/24/20 09:50 Pre-Op Diagnosis: Right Breast Abscess Post-Op Diagnosis: Right Breast Abscess I identified the patient and participated in the time-out.: Yes Procedure Operation Date: 05/24/20 09:50 Actual Procedures p Right Breast Abscess Incision and Drainage(Right) - Karon Valdes MD Surgeon Karon Valdes MD [employer] Cell[employer] Supervisor certified appliance service technician Estimated Blood Loss 3 Findings Consistent with Post-Op Diagnosis Fluids 400ml Specimens wound culture Anesthesia Type Local Complications none Disposition Accompanied Patient To Recovery: Yes Disposition: Recovery Room Overlapping Procedure I was immediately available: during the entire case.
[2020-05-24] MEDS ORDERED: ONDANSETRON INJ 2 MG/ML 2 ML VIAL ONE (14:50)
--- NOTE | 2020-05-24 15:28 | Anesthesiology Progress Note ---
Date of Service May 24, 2020 Anesthesia Post Procedure Vital Signs Vital Signs: Temp Pulse Pulse Pulse Resp BP BP 05/24/20 15:20 79 18 109/71 05/24/20 15:10 80 15 102/79 05/24/20 15:00 81 15 115/67 05/24/20 14:53 36.2 C L 77 18 104/71 05/24/20 14:05 36.6 C 78 18 127/66 05/24/20 12:00 87 18 123/74 05/24/20 10:00 80 18 139/78 05/24/20 08:23 74 20 149/79 H 05/24/20 06:47 36.9 C 85 20 130/78 Pulse Ox 05/24/20 15:20 92 05/24/20 15:10 94 05/24/20 15:00 94 05/24/20 14:53 96 05/24/20 14:05 98 05/24/20 12:00 97 05/24/20 10:00 97 05/24/20 08:23 94 05/24/20 06:47 98 Pain Intensity Right Breast: Pain Intensity: 0 Transfer of Care Handoff Completed per policy Notes Mental Status: alert / awake / arousable Patient Amnestic to Procedure: Yes Nausea / Vomiting: adequately controlled Pain: adequately controlled Airway Patency, RR, SpO2: stable & adequate BP & HR: stable & adequate Hydration State: stable & adequate Anesthetic Complications: no major complications apparent and Pt Satisfied with anesthetic care
--- NOTE | 2020-05-24 15:42 | Operative Report (OR) ---
DATE OF OPERATION: 05/24/2020 PREOPERATIVE DIAGNOSIS: Right breast abscess. POSTOPERATIVE DIAGNOSIS: Same. PROCEDURE: Incision and drainage of right breast abscess. SURGEON: Karon Valdes MD. ANESTHESIA: Conscious sedation plus local. ESTIMATED BLOOD LOSS: About 3 mL FINDINGS: Right breast abscess. Wound culture sent. COMPLICATIONS: None. INDICATIONS FOR THE PROCEDURE: This is a 34-year-old female who presented to ED with right breast abscess. The patient will require to do I and D right breast abscess. I did talk to the patient about the benefit, the risk, alternate procedure. I indicated the risks may include but not limited such as bleeding, infection, recurrence, scar. The patient understands. She signed informed consent and I answered all questions. DETAILS OF PROCEDURE: We brought the patient to the OR, put the patient in the supine position. The patient received SCD on bilateral legs to prevent DVT. Also, patient received 2 grams Ancef IV for prophylactic antibiotic. The patient received conscious sedation by anesthesiology. Right side of breast was prepped and draped in routine sterile fashion. After timeout, I injected the local anesthesia by using 1% lidocaine mixed with 0.5% Marcaine on the right side of the breast around the 8-9 o'clock, 1 cm from the nipple then made about a 1 cm incision and there was some pus come out. We did send wound culture. Once we cleaned out the abscess, packing the abscess with bacitracin and Kerlix. Then, we put the dressing on. The patient tolerated the procedure well. All instrument, needle and sponge count were correct x2 at the end of the case. The patient transferred to recovery room in stable condition. Wound culture was sent to lab. I attest to the content of the Intraoperative Record and any orders documented therein. Any exception s are noted below.
[2020-05-24] MEDS ORDERED: ALBUTEROL HFA 8 GM INHALER INH PRN (17:51)
[2020-05-24] MEDS: oxyCODONE/ACETAMINOPHEN 5mg/325mg TAB PO PRN (18:46)
[2020-05-24] MEDS: ceFAZolin 1000MG 1,000 MG/7.5 ML SYR IV SCH (18:54)
[2020-05-24] MEDS ORDERED: busPIRone 5 MG TAB PO SCH (21:00)
[2020-05-24] MEDS ORDERED: SPIRONOLACTONE 25 MG TAB PO SCH (21:00)
[2020-05-24] MEDS ORDERED: SERTRALINE HCL 100 MG TABLET PO SCH ×2 (21:00)
[2020-05-25] MEDS: ceFAZolin 1000MG 1,000 MG/7.5 ML SYR IV SCH ×2 (02:09→11:13)
[2020-05-25] MEDS: oxyCODONE/ACETAMINOPHEN 5mg/325mg TAB PO PRN ×2 (02:20→08:19)
[2020-05-25 09:08] LABS: Basophils # (auto) 0.01 K/uL (0-0.2); Basophils % (auto) 0.1 %; Eosinophils # (auto) 0.11 K/uL (0-0.5); Eosinophils % (auto) 1.4 %; Hematocrit (blood only) 39.2 % (37-47); Hemoglobin 12.5 g/dL (12.0-16.0); Immature Granulocytes # (auto) 0.01 K/uL (0.00-0.02); Immature Granulocytes % (auto) 0.1 %; Lymphocytes # (auto) 1.31 K/uL (1.2-3.4); Lymphocytes % (auto) 16.9 %; Mean Corpuscular Hemoglobin 26.6 pg (25-34); Mean Corpuscular Hgb Conc 31.9 g/dL (32-36); Mean Corpuscular Volume 83.4 fL (80-100); Mean Platelet Volume 9.5 fL (7.4-10.4); Monocytes # (auto) 0.69 K/uL (0.11-0.59); Monocytes % (auto) 8.9 %; Neutrophils # (auto) 5.62 K/uL (1.4-6.5); Neutrophils % (auto) 72.6 %; Platelet Count 208 K/uL (130-400); RDW Standard Deviation 45.8 fL (36.4-46.3); White Blood Count 7.75 K/uL (4.8-10.8)
--- NOTE | 2020-05-25 13:10 | Discharge Summary (DS) ---
DATE OF DISCHARGE: 05/25/2020 ADMITTING DIAGNOSIS: Right breast abscess. DISCHARGE DIAGNOSIS: Same. OPERATION: Incision and drainage, right breast abscess. SURGEON: Karon Valdes MD. DETAILS OF DISCHARGE SUMMARY: This is a 34-year-old female who presented to ED with right breast abscess. We took the patient to the OR. We did I&D right breast abscess. The patient tolerated the procedure well. The patient is doing fine. Stayed in the hospital overnight and no significant pain and we decided to discharge the patient home today. PHYSICAL EXAMINATION: VITAL SIGNS: Temperature is 36.6, respiratory rate is 16, heart rate 86, blood pressure 101/68, O2 saturation 98% on room air. GENERAL: The patient is alert, awake, oriented x3. HEENT: With normal limitation. NEUROLOGIC: Intact. NECK: No JVD. CHEST: Bilateral lung sounds clear. HEART: Normal S1, S2. No murmur. ABDOMEN: Soft. The incision site is dry and minimal drainage. The redness is getting better on the right breast. No significant tenderness. EXTREMITIES: No edema. PLAN: The patient wanted to go home. We gave the patient postop care instructions and also checked today, WBC is 7000. We gave patient postop care instruction. The patient will follow up with the wound care center at [facility] for packing change and I will follow up the patient in 1 or 2 weeks. The patient understands.
[2020-05-25] MEDS ORDERED: metFORMIN HCL ER 500 MG TABCR PO SCH (16:30)
== END 2020-05-25 15:00 | disposition home or self-care (01) ==
LOC: ED 06:43 → 3W 13:56 → ASU 13:56

== ENCOUNTER 2024-04-27 05:54 | Observation (INO) ==
--- NOTE | 2024-04-13 11:15 | Anesthesiology Consultation ---
Date of Service April 13, 2024 Assessment & Plan Chart Review Chart Review: Acceptable Risk for Surgery and Patient NOT seen in Pre Admission Testing Consults Requested none History Surgery Operation Date: 04/27/24 07:30 Proposed Procedures p Bilateral Brachioplasty - Mady Wild MD s Panniculectomy - Mady Wild MD Height/Weight Height: 5 ft 6 in Weight: 72.575 kg Allergies Allergy/AdvReac Type Severity Reaction Status Date / Time metaproterenol Allergy Mild UNKNOWN Verified 04/13/24 09:40 ibuprofen AdvReac Intermediate STOMACH Verified 04/13/24 09:40 ULCERS Medications Home Medications Medication Instructions Recorded Confirmed Last Taken doxycycline hyclate 100 mg capsule 100 mg PO BID 10 days #20 caps 04/07/24 04/07/24 Unknown escitalopram oxalate 10 mg tablet 10 mg PO HS 04/07/24 04/13/24 Unknown (Lexapro) hydroxyzine HCl 10 mg tablet 10 mg PO TID PRN anxiety/depression 04/07/24 04/13/24 Unknown oxycodone-acetaminophen 5 mg-325 1 tab PO Q4H PRN pain #18 tabs 04/07/24 04/07/24 Unknown mg tablet (Endocet) acetaminophen 500 mg tablet 1,000 mg PO Q6H PRN Pain 04/13/24 04/13/24 Unknown Past Medical History Medical History (Updated 04/13/24 @ 10:02 by Loren Garcia) History of pneumonia 2016, no recent issues History of palpitations 2018, w/chest pain and SOB "due to her anxiety and panic attacks" Hidradenitis suppurativa BPV (benign positional vertigo) hx, no issues for years Panic disorder Osteoarthritis Borderline diabetes hx-prior to weight loss Depression Anxiety Sleep apnea no CPAP-NO SLEEP STUDY SINCE WT LOSS GERD (gastroesophageal reflux disease) hx, no current meds Past Family History Family History Father Diabetes Sister Diabetes Grandfather Diabetes Aunt Diabetes Uncle Diabetes Other No family history of adverse response to anesthesia Past Surgical History Surgical History History of surgical removal of ganglion cyst left knee History of esophagogastroduodenoscopy (EGD) Gastric bypass status for obesity 10/2020-WT LOSS 100+ LBS History of arthroscopic knee surgery Rt History of breast surgery abscess History of tubal ligation History of tonsillectomy Social History Smoking Status: Former smoker tobacco type: cigarettes Smoking cigarettes per day: 20 CIGS A DAY Do You Dip or Chew Tobacco: No Smoking End Date: 12/2023 Hx Alcohol Use: Yes Alcohol type: hard liquor alcohol intake frequency: holidays/special occasions only Hx Substance Use: Yes substance use type: former substance user and marijuana Last Used Substance Other:: 18 years ago, occasional Testing Laboratory Results Laboratory Tests 04/07/24 11:46 WBC 5.49 Hgb 11.8 L Hct 36.6 L Plt Count 169 PT 10.4 INR 1.0 Sodium 140 Potassium 4.3 Chloride 109 H Carbon Dioxide 28 BUN 19 Creatinine 0.60 Glucose 118 H
[2024-04-27] MEDS: LR 15ML/HR IV SCH (06:21)
[2024-04-27] MEDS ORDERED: ROCURONIUM BROMIDE 10 MG/ML 5 ML VIAL IV ONE ×2 (06:40→08:44)
[2024-04-27] MEDS ORDERED: MIDAZOLAM HCL 1 MG/ML 2ML VIAL ONE (06:40)
[2024-04-27] MEDS ORDERED: ONDANSETRON INJ 2 MG/ML 2 ML VIAL ONE ×2 (06:40→06:43)
[2024-04-27] MEDS ORDERED: PROPOFOL IV EMULSION 10 MG/ML 20 ML VIAL IV ONE (06:40)
[2024-04-27] MEDS ORDERED: LIDOCAINE 2% 2 ML VIAL/AMP(20MG/ML) INFIL ONE (06:40)
[2024-04-27] MEDS ORDERED: fentaNYL citrate PF 100 MCG/2 ML VIAL ONE ×3 (06:40→12:09)
[2024-04-27] MEDS ORDERED: HYDROmorphone INJ 2 MG/ML SYR/VIAL ONE (06:44)
[2024-04-27] MEDS ORDERED: SUGAMMADEX SODIUM 200 MG/2 ML VIAL IV ONE (06:44)
[2024-04-27] MEDS ORDERED: ACETAMINOPHEN 1000 MG/100 ML IV IV ONE (06:50)
--- NOTE | 2024-04-27 06:50 | History & Physical Bridge Note ---
Date of Service April 27, 2024 History & Physical Bridge Note I have examined the patient, reviewed the History & Physical and in the interval since the performance of the History & Physical I have noted the following changes of clinical significance: recent mild covid, testing negative and all symptoms resolved.
[2024-04-27] MEDS ORDERED: MEPERIDINE HCL 25 MG/ML CARP/VIAL IV PRN (07:14)
[2024-04-27] MEDS ORDERED: PROMETHAZINE HCL 6.25 MG in SODIUM CHLORIDE 0.9% 50 ML IV PRN (07:14)
[2024-04-27] MEDS ORDERED: ATROPINE SULFATE 0.1 MG/ML 10ML SYR IV PRN (07:14)
[2024-04-27] MEDS ORDERED: ONDANSETRON INJ 2 MG/ML 2 ML VIAL IV PRN ×2 (07:14→13:05)
[2024-04-27] MEDS: TRANEXAMIC ACID 1,000 MG **IV Pre-op IV SCH (07:24)
[2024-04-27] MEDS: ceFAZolin 2000MG 2,000 MG/15 ML SYR IV SCH ×2 (07:57→15:35)
[2024-04-27] MEDS: TRANEXAMIC ACID 1,000 MG **IV Intra-op IV SCH (11:35)
[2024-04-27] MEDS: LIDOCAINE 1% LOCAL 20 ML VIAL ONE (11:58)
[2024-04-27] MEDS: EPINEPHrine INJ 1 MG/ML AMP ONE (11:58)
[2024-04-27] MEDS: LIDOCAINE 1%/EPINEPHRINE 1:100,000 50 ML VIAL ONE (11:58)
[2024-04-27] MEDS: BUPIVACAINE 0.25% PF 30 ML VIAL ONE (12:17)
--- NOTE | 2024-04-27 12:20 | Post Operative Brief Note ---
PG Immediate Post Op with CF Date of Surgery April 27, 2024 Pre & Post Diagnosis Operation Date: 04/27/24 07:30 Pre-Op Diagnosis: Hidradenitis, Poor Scarring Post-Op Diagnosis: Hidradenitis, Poor Scarring I identified the patient and participated in the time-out.: Yes Procedure Operation Date: 04/27/24 07:30 Actual Procedures p Bilateral Brachioplasty(Bilateral) - Mady Wild MD s and Panniculectomy(Not Applicable) - Mady Wild MD Surgeon Mady Wild MD Market Editor Katja Michelle MD, Sharon Live PA-C, Chantel Mota PA-C Estimated Blood Loss 25 Findings Consistent with Post-Op Diagnosis oil cysts abdomen, tunneling of hydradenitis lower abdomen, pits of bilateral upper arms and axillae Specimens Specimen Description: A) Abdominal Skin with Hidradenitis B) Left Upper Arm Skin C) Right Upper Arm Skin Drains Gates Catheter (Placed without difficulty prior to start of case) Anesthesia Type General Complications none
--- NOTE | 2024-04-27 12:21 | Operative Report ---
PG Post Operative Report Pre & Post Diagnosis Operation Date: 04/27/24 07:30 Pre-Op Diagnosis: Hidradenitis, Poor Scarring Post-Op Diagnosis: Hidradenitis, Poor Scarring I identified the patient and participated in the time-out.: Yes Procedure Operation Date: 04/27/24 07:30 Actual Procedures p Bilateral Brachioplasty(Bilateral) - Mady Wild MD s and Panniculectomy(Not Applicable) - Mady Wild MD Surgeon Mady Wild MD Machine Operator Hop Worker Katja Michelle MD, Sharon Live PA-C, Chantel Mota PA-C Estimated Blood Loss 25 Findings Consistent with Post-Op Diagnosis Specimens abdominal skin, bilateral upper arm and axillary skin Drains JPx3 Anesthesia Type General Complications none Indications 38-year-old female status post gastric bypass in 2020 with resulting 180 pound weight loss, history of hidradenitis. She underwent panniculectomy with Dr. Rizzo last October, noted poor scarring, resulting nodules, dissatisfaction with results. Options were discussed. Main concerns were poor scarring of the central abdomen as well as some resulting nodules and hidradenitis of the axillae and upper arm. With regard to the abdomen, we discussed scar revision and excision of the nodules, with the understanding there would still be some skin laxity of the upper abdomen and would not reconstruct the umbilicus at this time as these would be cosmetic in nature. Additionally, patient noted difficulty with urine stream due to tightness of the pubic area. Description of Procedure Risks, benefits, and alternatives of the procedure were explained to the patient who agreed and signed consent. She was identified and marked in the preoperative holding area. She was brought to the operating room where she was positioned supine and placed under general anesthesia without incident. Gates catheter was placed. Surgical site was prepped and draped sterilely. A time-out procedure was performed. I reassessed my markings. One of the goals was to straighten out the scar above the mons pubis as well as incorporate the palpable subcutaneous nodules. Incision was marked in similar fashion to mini abdominoplasty. I did not use the full length of the prior panniculectomy incision as the majority of the scar was well-healed and the previous scar did extend to the table. Skin was quite tight over the iliac crest. I began by injecting 1% lidocaine with epinephrine along the planned incision. The lower abdominal incision was made using a 15-blade scalpel to incise epidermis and superficial dermis followed by electrocautery to incise deep dermis, subcutaneous fat, Corey's fascia down to the abdominal wall. Care was taken to bevel superiorly in order to avoid encountering the inguinal region. I carried the incision along the fascial plane superiorly until I encountered three nodules within the prior scar and abdominal flap. These were incorporated into my planned excision. I did continue dissection more superiorly in order to try to leave behind a uniform superior flap. There really was fairly minimal excess skin in a horizontal direction and given history of distortion of the pubic area, I did not want to perform an excessive skin resection. At this point, the bed was flexed and the mid portion of the superior skin flap was inset above the mons pubis using 2-0 Vicryl suture. Skin flaps were marked for excision. A 15-blade scalpel was used to make these incisions and the incision was deepened through dermis, subcutaneous fat, Corey's fat using electrocautery. Subscarpal fat was resected directly. A 15 Telugu Yosvany drain was placed in the wound bed and brought out through a separate stab incision along the right side of the incision. The drain was sutured into place using 3-0 nylon. Prior to closure, a total of 10 mL of 0.25% Marcaine plain were injected into the fascia as well as along the incisions Wound closure was then begun lateral to medial using 2-0 Vicryl Corey's fascia sutures, 2-0 Vicryl deep dermal sutures, 2-0 PDO running superficial Quill suture, 3-0 Monocryl running subcuticular suture. Attention was then turned to the brachioplasty portion of the procedure. Markings were reassessed. Incisions were marked just above the bicipital groove and at the dome of the axilla, extending down the lateral chest wall to address skin laxity. I marked the incisions such that I incorporated as many h idradenitis pits as possible without placing the wounds under undue tension. 1% lidocaine with epinephrine was used to anesthetize the planned incisions. I began with the left arm. 15 blade scalpel made the upper incision through skin which was deepened using electrocautery through dermis, simultaneous fat, superficial fascia. Dissection of the skin flap was performed above the deep fascia leaving some subcutaneous tissue to protect the median antebrachial cutaneous nerve at the elbow. Similarly, more shallow dissection was performed in the axilla to protect the lymphatics and axillary structures. The anterior incision was then made down the lateral chest wall and this was elevated in similar fashion. The incision in the axilla was planned in an L-shape, similar to a Rashmi incision. The apex of the flap was inset into the axillary dome using 0 Nurolon interrupted sutures to tack the superficial fascial system to the clavicopectoral fascia. Skin resection was then performed in segmental fashion in order to allow for maximal resection with minimal skin tension. This was performed by dividing the skin flaps in segments and tailor tacking these areas to allow for excision. The wound was then temporarily stapled in sequential fashion the arm and along the lateral chest wall. Once I was satisfied with the skin resection and temporary closure of the left arm, similar procedure was undertaken on the right side. Should be noted the patient had additional excess skin of the left axilla and excess skin of the right arm which was also noted by the patient preoperatively. Once I was satisfied with the skin resection on the left side, temporary closure was performed. JUANITA drains were placed into both wound beds prior to closure. They were sutured into place using 3-0 nylon suture. Simultaneous wound closure was then undertaken on both arms using 2-0 Vicryl superficial fascial sutures, 2-0 Vicryl deep dermal sutures, 3-0 PDO Quill suture, which was performed in 2 segments so as not to cross the axilla with one continuous running suture. 3-0 Monocryl suture was then run in the subcuticular plane, also in 2 segments. Dermabond Prineo was applied to both incisions. Xeroform was placed around the drains. Provena wound vacs were applied to all incisions followed by surgical garments. Procedure was tolerated well. The patient was awakened and transferred to the recovery room in satisfactory condition. I attest to the content of the Intraoperative Record and any orders documented therein. Any exceptions are noted below.
[2024-04-27] MEDS ORDERED: diphenhydrAMINE Capsule 25 MG CAP PO PRN (13:05)
[2024-04-27] MEDS ORDERED: diphenhydrAMINE 50 MG/ML VIAL IV PRN (13:05)
[2024-04-27] MEDS ORDERED: PROMETHAZINE 12.5 MG/50.5 ML BAG IV PRN (13:05)
[2024-04-27] MEDS ORDERED: LORazepam 0.5 MG TAB PO PRN (13:05)
[2024-04-27] MEDS: fentaNYL citrate PF 100 MCG/2 ML VIAL IV PRN (13:22)
--- NOTE | 2024-04-27 14:27 | Anesthesiology Progress Note ---
Date of Service April 27, 2024 Anesthesia Post Procedure Vital Signs Vital Signs: Temp Pulse Resp BP Pulse Ox O2 Del Method O2 Flow Rate 04/27/24 14:15 57 L 17 129/59 L 95 Room Air 04/27/24 14:05 58 L 15 125/67 95 Room Air 04/27/24 13:55 61 15 138/64 97 Room Air 04/27/24 13:45 61 15 145/53 H 98 Oxymask 4 04/27/24 13:35 67 14 159/73 H 96 Oxymask 4 04/27/24 13:25 88 17 152/62 H 96 Oxymask 9 04/27/24 13:15 88 16 120/93 98 Oxymask 9 04/27/24 13:09 36.0 C L 81 12 161/81 H 100 Oxymask 9 04/27/24 06:10 36.8 C 57 L 18 119/43 L 99 Room Air Pain Intensity Bilateral Arm: Pain Intensity: 7 Abdomen: Pain Intensity: 4 Transfer of Care Handoff Completed per policy Notes Mental Status: alert / awake / arousable and participated in evaluation Patient Amnestic to Procedure: Yes Nausea / Vomiting: adequately controlled Pain: adequately controlled Airway Patency, RR, SpO2: stable & adequate BP & HR: stable & adequate Hydration State: stable & adequate Anesthetic Complications: no major complications apparent
[2024-04-27] MEDS: D5W AND 1/2NSS 1,000 ML IV SCH (15:35)
[2024-04-27] MEDS ORDERED: MoRPHine SULFATE 2 MG/ML CARP IV PRN (15:58)
[2024-04-27] MEDS ORDERED: oxyCODONE/ACETAMINOPHEN 5mg/325mg TAB PO PRN (15:58)
[2024-04-27] MEDS ORDERED: ACETAMINOPHEN 325 MG TAB PO PRN (15:58)
[2024-04-27] MEDS: MoRPHine SULFATE 4 MG/ML 1 ML CARP\\VIAL IV PRN (16:24)
[2024-04-27] MEDS: oxyCODONE/ACETAMINOPHEN 5mg/325mg TAB PO PRN (17:36)
[2024-04-28 03:15] VITALS: O2SAT 95
--- NOTE | 2024-04-28 07:38 | Surgery Progress Note ---
Date of Service April 28, 2024 Assessment & Plan (1) Excess skin: (2) Scar condition and fibrosis of skin: (3) Hidradenitis suppurativa: Plan S/P revision panniculectomy and brachioplasty. D/C home today- void prior to d/c Office follow-up tomorrow Admission and Anticipated Discharge Date Admission Date: April 27, 2024 Subjective Patrice is resting in bed. Gates removed this AM, has not voided yet. Pain is controlled. Vacs have been functioning overnight. Physical Exam Physical Exam: 3 preveena wound vacs to suction. drains with scant serosang output. all compression is being worn Results & Data Vital Signs (Past 12 Hours) Vital Signs Temp Pulse Resp BP BP Pulse Ox O2 Del Method 04/28/24 03:15 37.0 C 60 12 144/67 H 95 Room Air 04/27/24 22:37 36.8 C 67 18 167/88 H 91 Room Air PG Care Time/CCT Total # of Minutes Spent Total Time Spent with Patient: Total time spent is greater than 50% in coordination of care (as documented) at patient's floor/unit and/or counseling patient: Coding Level of Care Code 51296 Post Operative Follow-Up Diagnoses Excess skin L98.7 Scar condition and fibrosis of skin L90.5 Hidradenitis suppurativa L73.2
[2024-04-28 08:03] VITALS: BP 152/80; PULSE 64; RESP 17; TEMP 98.8
[2024-04-28] MEDS ORDERED: MULTIVITAMIN TAB PO SCH (09:00)
--- NOTE | 2024-04-29 14:34 | Discharge Summary ---
Date of Service April 28, 2024 Admission HPI Per Admitting Provider Patient has history of hidradenitis in the axilla and groin/abdomen. She is s/p prior panniculectomy and has had a 180lb weight loss. Admission Exam Per Admitting Provider excess skin and scar of the abdomen, HS of the abdomen and axilla Principal Diagnosis Abdominal pannus, hidradenitis, and skin laxity Discharge Exam 3 preveena wound vacs to suction. drains with scant serosang output. all compression is being worn Discharge Data Allergies Allergy/AdvReac Type Severity Reaction Status Date / Time metaproterenol Allergy Mild UNKNOWN Verified 04/27/24 06:15 ibuprofen AdvReac Intermediate STOMACH Verified 04/27/24 06:15 ULCERS Procedures Performed Operation Date: 04/27/24 07:30 Actual Procedures p Bilateral Brachioplasty(Bilateral) - Mady Wild MD s and Panniculectomy(Not Applicable) - Mady Wild MD Hospital Course (1) Excess skin: (2) Scar condition and fibrosis of skin: (3) Hidradenitis suppurativa: Plan Patient presented to [facility] with history of abdominal pannus, excess skin and H.S. She was taken to the OR and underwent revision panniculectomy and bilateral brachioplasty. There were no intraoperative complications. Three preveena wound vacs were applied to her incisions. She was taken to recovery and transferred to med/surg for observation. On POD#1, she was feeling well. She was tolerating a regular diet and ambulating. She was able to void after catheter was removed. On exam, her vitals were stable. Wound vacs were reinforced for small air leak. Her drains had appropriate output. She was discharged home with instructions to follow-up in the office in one day. Total Time Total Time Spent Total Time Spent (In Minutes): 20 Total Time Includes: Examination of the Patient and Communication With Other Providers Discharge Plan Discharge Items Patient Disposition: Home - Self-Care Reason For Visit: Hidraenitis, Poor Scarring Discharge Diagnosis: s/p revision panniculectomy and brachioplasty Activity: As commented below Non-emergency contact: Surgeon Call non-emergency contact if: you have any medication questions, your pain is not controlled and you have a fever Follow-up/Referrals: Sharon Live PA-C [Physician [employer]] - Coleman Braden MD [Primary Care Provider] - Diet: Regular Addtl Attending Provider Instructions: ACTIVITY RECOMMENDATIONS: __Normal activities _x_No bending, lifting or straining. Do not stand or lay flat until it is easily comfortable. Keep arms at shoulder height or below __No driving __Driving allowed when you are off pain medications _x_Walking permitted __You should have help at home for ___ days DRESSINGS: __No dressings required _x_Keep dressings dry/in place until first office visit. Must remain in compression __Remove dressings ___ and leave dressings off __Apply ice ___ days __Remove dressings and reapply garment __Apply antibiotic ointment (Bacitracin, Neosporin, etc) to wounds 3-4 times/day for 10 days BATHING: _x_Keep dressings dry _x_Sponge bathing permitted- wound vacs and dressings cannot get wet __Showering permitted _x_No swimming, hot tubs or soaking in a tub MEDICATIONS: Resume previous medications unless instructed otherwise by your surgeon. _x_Do not use aspirin, Motrin, Advil or Ibuprofen as these may promote bleeding. Please use Tylenol. _x_Prescription(s) provided: pain medication was provided at your last office v isit OTHER INSTRUCTIONS: _x_Record drain output 2-3 times per day SPECIAL CARE INSTRUCTIONS: * It is normal to have a mild fever after surgery. If your temperature is higher than 101.5 degrees F, please call the office at [phone]. * Constipation is a typical side effect of pain medication. An [id number] stool softener will help relieve this. * Leaking around surgical drains may occur and should not cause concern. Sometimes these drains become clogged. If this happens, remove the bulb and milk the clot out of the tube, then replace the bulb. * Drainage from wounds after liposuction is normal and should be expected. Garments will become soiled. You should protect furniture and bedding. This drainage should mostly subside within 2-3 days. Leave garments in place unless instructed to remove them. * If you have unusual drainage from a wound or are concerned you have an in fection or have any questions or concerns, please call the office at [phone]. FOLLOW UP VISIT: If not already scheduled, please call the office, , when you return home after surgery to schedule an appointment to be seen in __1_ days. Pending Studies at Discharge: Yes Stand-Alone Forms: [facility], Smoking Cessation Medications and DC Order Prescriptions: Continued escitalopram oxalate [Lexapro] 10 mg tablet 10 mg PO HS hydroxyzine HCl 10 mg tablet 10 mg PO TID PRN (Reason: anxiety/depression) oxycodone-acetaminophen [Endocet] 5-325 mg tablet 1 tab PO Q4H PRN (Reason: pain) Qty: 18 0RF Rx Instructions: initial therapy Dr. Wild [id number] doxycycline hyclate 100 mg capsule 100 mg PO BID 10 Days Qty: 20 0RF Patient Comments: post-op acetaminophen 500 mg Tablet 1,000 mg PO Q6H PRN (Reason: Pain) No Action ondansetron 4 mg tablet,disintegrating 4 mg PO Q8H Qty: 30 0RF Discharge Orders: Discharge Order (Routine); Ordered 04/28/24 Ordered By: Sharon Live Admission Data Admit Date/Time: 04/27/24 13:08 Attending Provider: Mady Wild Admit Provider: Mady Wild Primary Care Provider: Coleman Braden Other Interventions: Discharge Summary Assessment (RN) Last Done: 04/28/24 10:16 Coding Level of Care Code 72236 OBS Care - Discharge Diagnoses Excess skin L98.7 Scar condition and fibrosis of skin L90.5 Hidradenitis suppurativa L73.2
== END 2024-04-28 11:48 | disposition home or self-care (01) ==
LOC: ASU 05:54 → 3E 05:54